=== PATIENT | female | born 1965 | race Caucasian/White ===

== ENCOUNTER 2022-09-24 16:46 | Outpatient (CLI) | payer OTHER, BC, SELFPAY ==
--- OUTSIDE RECORDS SUMMARY | 2022-10-26 11:43 | XMS_ITS | Encounter Summary ---
:1965 Author Organization [facility] Address [address] [place] [address] Care Team Providers Name Role Phone Siobhan Klein MD Primary Care Provider Reason for Visit Reason Comments Skin Check Encounter Details Date Type Department Care Team Description 08/14/2016 Office Visit [facility] [address] Rosa Elena Cota MD Seborrheic keratosis (Primary Dx); Dermatology [address] Scar conditions and fibrosis of skin; [address] [place], [place] Benign neoplasm of skin, unspecified location; [address] [address] Sun-damaged skin; [place], [place] [phone] Screeni for malignant neoplasm of skin [id number] (Work) [phone] Social History Tobacco Use Types Packs/Day Years Used Date Smoking Tobacco: Never Sex Assigned at Date Recorded Not on file documented as of this encounter Patient Instructions Patient InstructionsRosa Elena Cota MD - 08/14/2016 5:52 PM CDT Please return in one year for a routine screening. Continue to monitor your skin for new or changing skin lesions. Always protect your skin from the sun with clothing and sunscreen SPF 30-50. Skin cancer can arise slowly or quickly. If you ever have a skin lesion that is concerning, please schedule an appointment to have it checked by calling [phone]. documented in this encounter Progress Notes Rosa Elena Cota MD - 08/14/2016 3:49 PM CDT DERMATOLOGY NEW PATIENT VISIT NOTE: Chief Complaint: Skin Lesions-Upper Back, Left Collarbone; Skin Cancer Screening Examination. Derm History: Actinic keratosis Dysplastic nevus, left breast Melasma HPI: Bev Castillo is a 48 y.o. female who presents today for a routine yearly skin cancer screening. She has two lesions of concern today: 1. She has noticed an itching lesion on her left upper back over the past few months. She believes that a portion of the lesion has fallen off. 2. She noticed a firm lesion on her left collarbone 6 months ago which has not been changing in size. It is not bothersome. She has a history of actinic keratoses and a dysplastic nevus on her left breast. FHx: The patient has no family history of skin cancer or melanoma. ROS: The patient denies any other recent concerning skin lesions or rashes. Medications: Reviewed in Epic. Allergies: Reviewed in Epic. PMHx: Pertinent items are in HPI. Physical Examination: GENERAL: The patient is alert & oriented x3 in NAD, pleasant and cooperative, displaying a Cantu Skin Type 4. CUTANEOUS: A skin examination was performed including the scalp, face, ears, neck, chest, breasts, abdomen, back, buttocks, perianal area, all four extremities, hands, feet. Palpation and visual inspection of the nails was done. Mucous membranes were not examined. Assessment & Plan: 1. Pigmented Seborrheic Keratosis: There is a discrete brown keratotic 4 mm papule on the left upperback. 2. Scar: There is a 3-4 mm ropey firm scar-like papule on the left collarbone. Plan: Reassurance, both appear benign, not worrisome. No need to remove or biopsy. Advised to RTC if either lesion changes. 2. History of Dysplastic Nevi: There are no suspicious lesions for skin cancer or melanoma. There are multiple solar induced lentigines and keratoses in sun exposed skin, benign pigmented seborrheic keratoses, and multiple benign to slightly atypical appearing dark brown papules randomly scattered on the trunk and extremities. Plan: Continue close surveillance. Patient Education: re ALVIN's, need for regular self examination and sun protection with sunscreen use and protective clothing. An appointment should be made if any of the moles change in color, shape, size, thickness, itch, or bleed. The patient was advised to RTC in 1-2 years. Rosa Elena Cota MD (Primary Provider) documented in this encounter Plan of Treatment Upcoming Encounters Date Type Specialty Care Team Description 06/19/2023 Appointment Dermatology Rosa Elena Cota M D [address] [place] [phone] (Wo rk) documented as of this encounter Visit Diagnoses Diagnosis Seborrheic keratosis - Primary Other seborrheic keratosis Scar conditions and fibrosis of skin Scar condition and fibrosis of skin Benign neoplasm of skin, unspecified loc ation Sun-damaged skin Other chronic dermatitis due to solar ra diation Screening for malignant neoplasm of skin Screening for malignant neoplasm of the skin documented in this encounter Care Teams Shoe Stitcher Odd Relationship Specialty Start Date End Date Siobhan Klein MD PCP - General 07/19/16 [address] [place] [address] documented as of this encounter
--- OUTSIDE RECORDS SUMMARY | 2022-10-26 11:43 | XMS_ITS | Encounter Summary ---
:1965 Author Organization [facility] Address [address] [place] [address] Care Team Providers Name Role Phone Siobhan Klein MD Primary Care Provider Reason for Referral (Routine) - New Request Specialty Diagnoses / Procedures Referred By Contact Refer red To Contact Diagnoses Multiple actinic keratoses Rosa Elena Cota MD Procedures MO DESTRUC BENIGN/PREMAL,2-14 LESIONS [address] [place] [address] Referral ID Status Reason Start Date Expiration Date Visits V isits Requested Authorized [id number] New Request 06/19/2022 09/18/2023 1 1 Reason for Visit Reason Comments Skin Check SKIN LESION 1)r preauricular area- onset : months. Red pimple like lesion. Feels like something is in it2) Rough spot on left nasal sidewall. Onset: present since last visit. Was prescr ibed Efudex. The area is still a little rough Encounter Details Date Type Department Care Team Description 06/19/2022 Office Visit [facility] & Rosa Elena Cota M D Benign neoplasm of skin, unspecified loc ation (Primary Dx); Specialty Center - [address] Multiple actinic keratoses; Dermatology [place], [place] Sun-damaged skin; [address] [facility] N [address] Family history of malignant melanoma; [place], [place] [address] Screening for malignant neop lasm of skin Social History Tobacco Use Types Packs/Day Years Used Date Smoking Tobacco: Never Smokeless Tobacco: Never Sex Assigned at Date Recorded Not on file documented as of this encounter Progress Notes Rosa Elena Cota MD - 06/19/2022 8:15 AM CDT DERMATOLOGY NEW PATIENT VISIT NOTE: Chief Complaint: Skin Cancer Screening Examination. Derm History: Actinic keratosis Efudex cream-nose 2018, cheeks and lips 2020 Dysplastic nevus, left breast Family history of melanoma-mother Melasma HPI: Bev Castillo is a 56 y.o. female who presents today for a routine skin cancer screening. She was lastscreened by me on 08/03/20. She has the following concerns today: -lesion right cheek present months, pimple-like -lesion left nose, rough present months She has a history of actinic keratoses and a dysplastic nevus on her left breast. FHx: Her mother was diagnosed with melanoma this year. ROS: The patient denies any other recent concerning skin lesions or rashes. Medications: Reviewed in Epic. Allergies: Reviewed in Epic. PMHx: Pertinent items are in HPI. Physical Examination: GENERAL: The patient is tanned, alert & oriented x3 in NAD, pleasant and cooperative, displayinga Cantu Skin Type 4. CUTANEOUS: A skin examination was performed including the scalp, face, ears, neck, chest, breasts, abdomen, back, buttocks, perianal area, all four extremities, hands, feet. Assessment & Plan: 1. Multiple actinic keratoses: There are ill defined scaling to slightly hyperkeratotic papules on the right lateral cheek, left sidewall nose, left cheek bone. The patient understands the precancerous nature. The risks and benefits of the freezing procedure including infection, scarring, and inflammation with blistering were explained to the patient. Liquid nitrogen. Canister application x 3. Lesions treated -3 The patient tolerated the procedure well and wound care instructions were provided to apply Aquaphoror Vaseline twice per day. 2. History of dysplastic nevus: There is no recurrence of the dysplastic nevus on the left breast. 3. Screening for skin cancer: There are no suspicious lesions for skin cancer on examination today. Sun damage: There is solar skin damage with multiple brown lentigines and early sun induced keratoses to the exposed areas of the face, neck, arms, and legs. Seborrheic keratoses: There are multiple discrete mendez to brown keratotic papules on the trunk and extremities. Ott angiomas: There are multiple bright red vascular papules on the trunk. Multiple benign nevi: There are multiple benign appearing regular solid brown papules randomly scattered on the trunk and extremities. None appear to be melanoma. Continue self and routine surveillance. Patient education: re ABCDE's, need for regular self examination and sun protection with OTC SPF 50+sunscreen use and protective clothing. An appointment should be made if any of the moles change in color, shape, size, thickness, itch, or bleed. The patient was advised to RTC in 1 year. Rosa Elena Cota MD (Primary Provider) documented in this encounter Plan of Treatment Upcoming Encounters Date Type Specialty Care Team Description 06/19/2023 Appointment Dermatology Rosa Elena Cota M D [address] [place] [phone] (Wo rk) documented as of this encounter Visit Diagnoses Diagnosis Benign neoplasm of skin, unspecified loc ation - Primary Multiple actinic keratoses Actinic keratosis Sun-damaged skin Other chronic dermatitis due to solar ra diation Family history of malignant melanoma Family history of other specified malign ant neoplasm Screening for malignant neoplasm of skin Screening for malignant neoplasm of the skin documented in this encounter Care Teams Home Health Assistant Relationship Specialty Start Date End Date Siobhan Klein MD PCP - General 07/19/16 [address] [place] [address] documented as of this encounter
--- OUTSIDE RECORDS SUMMARY | 2022-10-26 11:43 | XMS_ITS | Encounter Summary ---
:1965 Author Organization [facility] Address [address] [place] [address] Care Team Providers Name Role Phone Siobhan Klein MD Primary Care Provider Reason for Visit Reason Comments Skin Check Encounter Details Date Type Department Care Team Description 08/03/2020 Office Visit [facility] Rosa Elena Cota M D Actinic cheilitis (Primary Dx); Specialty Center - [address] [place] [address] VD Actinic keratosis; Dermatology [place], [place] Seborrheic keratosis; [address] [facility] [address] [address] Ott angioma; [place], [place] [address] Multiple benign nevi; Sun-damaged skin; [phone] History of dysp lastic nevus; (Fax) Screening for m alignant neoplasm of skin Social History Tobacco Use Types Packs/Day Years Used Date Smoking Tobacco: Never Smokeless Tobacco: Never Sex Assigned at Date Recorded Not on file documented as of this encounter Progress Notes Rosa Elena Cota MD - 08/03/2020 10:15 AM CDT DERMATOLOGY NEW PATIENT VISIT NOTE: Chief Complaint: Skin Cancer Screening Examination. Derm History: Actinic keratosis Efudex cream-nose 2017, cheeks 2019 pending Dysplastic nevus, left breast Melasma HPI: Bev Castillo is a 54 y.o. female who presents today for a routine skin cancer screening. She was lastscreened by me on 04/03/18. She has the following concerns today: -lesion left cheek, rough present 6 months -lesion right shoulder, picks at it -lesion chest -lesion right lower leg She has a history of actinic keratoses and a dysplastic nevus on her left breast. FHx: She has no family history of skin cancer [...] extremities, hands, feet. Assessment & Plan: 1. Actinic cheilitis There is whiteness of the lower lip with fragility. Patient Education regarding sun damage of the low lower lip Recommend trying Efudex cream twice daily for 5-7 days, followed by application of Aquaphor ointment, sun protection 2. Actinic keratosis: There is an ill defined scaling area on the left cheek. The patient understands the lesions are precancerous. Treatment options explained- liquid nitrogen vs Efudex cream. She would like to try Efudex cream. The risks and expectations of the treatment were discussed in detail with the patient. Begin Efudex cream as directed. Sig: Apply the 5-Fluorouracil cream thinly to the cheeks twice per day for one week, then allow the treated areas to fully heal using Aquaphor ointment for 2-4 weeks twice per day. Restart the cream twice per day for two more weeks, then allow to heal again using Aquaphor ointmenttwce per day. Instructional AVS was reviewed and provided. She has a tube at home. 3. Macular seborrheic keratosis There is a 5 mm brown discrete keratotic papule on the right lower leg. There is a 3 mm brown discrete keratotic papule on the central chest. Reassurance, appear to be benign keratoses 4. Ott angioma There is a 2 mm ott angioma on the right shoulder. Reassurance, appears benign 5. History of dysplastic nevus: There is no recurrence of the dysplastic nevus on the left breast. 6. Skin cancer screening: There are no suspicious lesions for skin cancer or melanoma. Sun damage: There is solar skin damage with multiple brown lentigines and early sun induced keratoses to the exposed areas of the face, neck, arms, and legs. Seborrheic keratoses: There are multiple discrete mendez to brown keratotic papules on the trunk and extremities. Multiple benign nevi: There are multiple benign to slightly atypical appearing regular solid dark brown papules randomly scattered on the [...] Appointment Dermatology Rosa Elena Cota M D [address] [place] [phone] (Wo rk) documented as of this encounter Visit Diagnoses Diagnosis Actinic cheilitis - Primary Acute dermatitis due to solar radiation Actinic keratosis Seborrheic keratosis Other seborrheic keratosis Ott angioma Nevus, non-neoplastic Multiple benign nevi Benign neoplasm of skin, site unspecifie d Sun-damaged skin Other chronic dermatitis due to solar ra diation History of dysplastic nevus Personal history of diseases of skin and subcutaneous tissue Screening for malignant neoplasm of skin Screening for malignant neoplasm of the skin documented in this encounter Care Teams Hospitality Aide Relationship Specialty Start Date End Date Siobhan Klein MD PCP - General 07/19/16 [address] [place] [address] documented as of this encounter
--- OUTSIDE RECORDS SUMMARY | 2022-10-26 11:43 | XMS_ITS | Clinical Summary ---
:1965 Author Organization [facility] Address [address], [place] [address] Care Team Providers Name Role Phone Siobhan Klein MD Primary Care Provider Source Comments You are receiving this document as you are listed as the primary care provider,follow-up provider, or the patient has been referred to you for consultation.This is in compliance with the Medicare and Medicaid EHR Incentive Program,which states Providers who transition their patient to another setting of careor provider of care or refers their patient to another provider of care shouldprovide summarycare record for each transition of care or referral. [facility] Allergies No known active allergies Medications Medication Sig Dispensed Refills Start Date End Date Status aspirin EC 81 MG Take 81 mg by 0 Active enteric coated tablet mouth daily. fluorouracil (EFUDEX) 5 Apply to the nose 45 g 0 04/03/20 18 Active % creamIndications: twice per day for Actinic keratosis 7 days, then allow to heal. Restart the cream BID for 2 weeks, then allow to heal. Additional Information Patient not taking. Reported on 08/03/2020 Active Problems No known active problems Social History Tobacco Use Types Packs/Day Years Used Date Smoking Tobacco: Never Smokeless Tobacco: Never Sex Assigned at Date Recorded Not on file Plan of Treatment Upcoming Encounters Date Type Specialty Care Team Description 06/19/2023 Appointment Dermatology Rosa Elena Cota M D [address] [place] [phone] (Wo rk) Health Maintenance Due Date Last Done Comments Cervical Cancer Screening 1965 Due Colon Cancer Screening Plan 1965 Due Hep C Screening (Preventive 1965 Services) HepB (1) 1965 COVID-19 Vaccine (#1) 02/01/1965 HIV Screening (Preventive 1980 Services) Adult Preventive Visit 1982 Cholesterol 2009 Zoster/Shingles (1 of 2) 2014 DTaP/Tdap/Td (2 - Tdap) 12/17/2021 12/17/2011, 01/29/2003 Mammogram 06/29/2022 06/29/2021, 05/19/2020, 02/13/2019, Additional history exists Influenza (#1) 2022 HepA Aged Out 08/27/2003, 08/27/2003, No longe r eligible 01/29/2003, Additional based on patient's age history exists to complete this topic Hib Aged Out No longer eligib le based on patient 's age to complete this topic IPV (Polio) Aged Out No longer eligib le based on patient 's age to complete this topic MCV4 Aged Out No longer eligib le based on patient 's age to complete this topic Pneumococcal Aged Out No longer eligib le based on patient 's age to complete this topic Insurance Payer Benefit Plan / Subscriber ID Effective Dates Phone Addre ss Type Group BCBS BCBS OUT OF [id number] 2016-Present [address] [address] [place] [address] Bev Castillo Personal/Family Self 1965 [address] (Home) [place] [address] Bev Castillo Personal/Family Self 1965 [address] (Home) [place] [address] Care Teams Edi Analyst Relationship Specialty Start Date End Date Siobhan Klein MD PCP - General 07/19/16 [address] [place] [address] (work)
--- OUTSIDE RECORDS SUMMARY | 2022-10-26 11:43 | XMS_ITS | Encounter Summary ---
:1965 Author Organization [facility] Address [address] [place] [address] Care Team Providers Name Role Phone Siobhan Klein MD Primary Care Provider Reason for Visit Reason Comments PEELING, SKIN Encounter Details Date Type Department Care Team Description 03/18/2021 Nurse Triage Careline Unknown, Physician PEELING, SKIN [address] [place], [place] [address] [place], [place] [phone] (Wo rk) Social History Tobacco Use Types Packs/Day Years Used Date Smoking Tobacco: Never Smokeless Tobacco: Never Sex Assigned at Date Recorded Not on file documented as of this encounter Nursing Notes Rica Sousa RN - 03/18/2021 2:04 PM CDT Reason for Disposition ??? [1] Caller has URGENT medication question about med that PCP or specialist prescribed AND [2] triager unable to answer question Protocols used: MEDICATION QUESTION [id number] Rica Sousa RN - 03/18/2021 1:43 PM CDT Verified patient identity: Yes Situation/Background (brief explanation of current symptoms/situation): Patient was advised to use efudex for 5-7 days for a precancerous area on her lower lip. She used it through last Saturday, which was seven days. Now she sees some blistering and has some pain. Patient states that the precancerous area was on lower lip. It looks creamy, slightly swollen. No pus, fevers, or red streaking. No problems breathing or swallowing. Last night she developed painin the left ear, but at the moment she does not have the pain. She took two Ibuprofen last night forboth the ear and lip pain. There is some bleeding. Patient developed symptoms on late . She sees cracking and the area is tight. Cool washcloth is helpful. Is that ok? Reviewed with patient pertinent medical history (as it related to the call): Yes PLAN: Paged Marcela Blankenship MD (ultrasonic tester for [facility] dermatology) at 1:54 PM She called back right away. Dr. Blankenship stated that this is a fairly significant reaction but not unheard of. She would like to know if the patient has a history of any HSV-1 on the lower face. If so she would like to prescribe some Valtrex. Otherwise, ok to continue with care as she is doing, including gentle washing only, cool packs, Ibuprofen, Vaseline, OTC hydrocortisone cream 1%. Call back or be seen in UC with signs of infection or worsening symptoms. This typewriter mechanic called back to the patient with Dr. Blankenship's advice. The patient denied any history ofcold sores. She voiced understanding and agreement with the plan of care. I offered continued CareLine assistance at any time 10/06. I offered to route a note to the dermatology department for follow upon Saturday, but she stated she would prefer to follow up with them if needed on Saturday and will call herself in that case. Rica Sousa RN 03/18/2021, 2:03 PM Hillary Tomas - 03/18/2021 10:21 AM CDT Verified patient identity using three identifiers: Yes Caller's relationship to patient: Self At which care system or clinic is the patient normally seen? Other (Clinic Name) Symptoms Describe the reason for call/symptoms (include location and duration if applicable): pt states she is currently on a medication (cream) states she used it on her lips for 7 days states her lips are nowpeeling,cracking, Plan:The current callback time to speak with a nurse is 2.0 hr. . If your symptoms change or worsen,or if you have not received a call back in the stated timeframe, please call us back documented in this encounter Plan of Treatment Upcoming Encounters Date Type Specialty Care Team Description 06/19/2023 Appointment Dermatology Rosa Elena Cota M D [address] [place], [place] [phone] (Wo rk) documented as of this encounter Visit Diagnoses Not on filedocumented in this encounter Care Teams Sign Language Instructor Relationship Specialty Start Date End Date Siobhan Klein MD PCP - General 07/19/16 [address] [place] [address] documented as of this encounter
--- OUTSIDE RECORDS SUMMARY | 2022-10-26 11:43 | XMS_ITS | Encounter Summary ---
:1965 Author Organization [facility] Address [address] [place] [address] Care Team Providers Name Role Phone Siobhan Klein MD Primary Care Provider Reason for Visit Reason Comments Medication Questions Encounter Details Date Type Department Care Team Description 12/29/2020 [address] [place] [facility] & Rosa Elena Cota M D Medication Questions Specialty Center - [address] [place] [address] Dermatology [place] [address] [phone] Social History Tobacco Use Types Packs/Day Years Used Date Smoking Tobacco: Never Smokeless Tobacco: Never Sex Assigned at Date Recorded Not on file documented as of this encounter Nursing Notes Rosa Elena Cota MD - 12/29/2020 4:04 PM CST I left Bev a voice message indicating to stay the course as directed despite not having much of a reaction. She can go ahead and use it on the lip as instructed and time. Henny Eugene RN - 12/29/2020 12:44 PM CST LAST VISIT: 07/2020 NEXT VISIT: none Date(s) of failed/ cancelled appt: na NAME OF CALLER: Bev NAME OF CLINICIAN: Dr Cota SITUATION: Pt has been using Efudex on cheeks for 6 days and nothing is happening. BACKGROUND: Hx of AKs, DN. Treated nose with Efudex in 2018. Was advised to start Efudex to cheeks and lips. ASSESSMENT: Pt has completed 6 days of efudex to malar cheek. She notes that her tube is slightly (10/2020) and is not sure if that is to blame for lack or reaction. She has not yet started treatment on lip. Denies any redness/ blotches, discomfort. RECOMMENDATION GIVEN: Advised to keep applying until she hears back from Dr Cota. Per original instructions she was to take a break after one week of treatment. Since she has had no reaction I advised she does not need to observe a break. Will ask for direction from Dr Cota ACTION NEEDED FROM PROVIDER: Please advise: does she need a new tube of Efudex or is there another reason for lack of response? She does not want to treat lips yet if you think she needs new Rx. PHARMACY UPDATED IN MEDS AND ORDERS:no CALL PATIENT BACK: yes CALL BACK PHONE NUMBER: [phone] (home) MESSAGE OK: yes CE SURGEON documented in this encounter Plan of Treatment Upcoming Encounters Date Type Specialty Care Team Description 06/19/2023 Appointment Dermatology Rosa Elena Cota M D [address] [place] [phone] (Wo rk) documented as of this encounter Visit Diagnoses Not on filedocumented in this encounter Care Teams Rotary Surface Grinder Relationship Specialty Start Date End Date Siobhan Klein MD PCP - General 07/19/16 [address] [place] [address] documented as of this encounter
--- OUTSIDE RECORDS SUMMARY | 2022-10-26 11:43 | XMS_ITS | Encounter Summary ---
:1965 Author Organization [facility] Address [address] [place] [id number] Care Team Providers Name Role Phone Siobhan Klein MD Primary Care Provider Reason for Visit Reason Comments Skin Check Encounter Details Date Type Department Care Team Description 04/03/2018 Office Visit Gabriela Mora & Rosa Elena Cota M D Actinic keratosis (Primary Dx); [facility] - [address] [place] [address] VD Benign neoplasm of skin, unspecified loc ation; Dermatology [place], [place] Sun-damaged skin; [address] [facility] [address] [address] History of dysplastic nevus; [place], [place] [address] Screening for malignant neop lasm of skin Social History Tobacco Use Types Packs/Day Years Used Date Smoking Tobacco: Never Smokeless Tobacco: Never Sex Assigned at Date Recorded Not on file documented as of this encounter Patient Instructions Patient InstructionsRosa Elena Cota MD - 04/03/2018 2:00 PM CDT EFUDEX (5-FLUOROURACIL) CREAM INSTRUCTIONS The cream is intended to reduce your risk of future skin cancer by destroying precancerous lesions. It is a chemotherapeutic cream that will cause inflammation and swelling after it is applied, as wellas cause a field effect to the surrounding skin. It can be a harsh treatment but most patients feel it is beneficial care home. It is expected that you will become red, scaly, and occasionally develop small scabs during treatment. Please follow the instructions as explained by your cobol engineer as follows: Apply the 5-FU cream thinly to the nose twice per day for 1 week, then allow the treated areas to fully heal for 2 to 4 weeks using Vaseline or Aquaphor ointment twice per day. Restart the cream twice per day for 2 more weeks, then allow to heal again using Vaseline or Aquaphor ointment twice per day.Wash hands after application. For evening application, apply at least 1 hour prior to bedtime to avoid smearing medication on bedclothes. Always apply the cream in a thin fashion and avoid the areas around the eyes and the creases alongside your nose! If at any time the cream is causing severe discomfort, a short break up to one to two weeks can be taken with the idea it will be restarted. It is best to complete a total time of three weeks using it twice per day with breaks of time if desired. You may use Vaseline or Aquaphor ointment at anytime during and after the treatment. Avoid sun and wind exposure during treatment as this can increase your discomfort. Sunscreens with UVA and UVB protection and SPF 30 or greater should be used on a regular basis (it is safe and recommended to apply sunscreen on top of this medication). Allow at least two months for complete healing. Your skin will be sensitive for a few weeks and it is very important not to be in the sun without protection. Call the doctor at anytime during the course of treatment at [phone] if you have concerns or questions or if you develop fever, chills, pus drainage, or other signs of infection. See your doctor again in 3 months after completion of the treatment. Please return in 1-2 years for a routine screening. Continue to monitor your skin for new or changing skin lesions. Always protect your skin from the sun with clothing and sunscreen SPF 30-50. Skin cancer can arise slowly or quickly. If you ever have a skin lesion that is concerning, please schedule an appointment to have it checked by calling [phone]. documented in this encounter Progress Notes Rosa Elena Cota MD - 04/03/2018 2:00 PM CDT DERMATOLOGY NEW PATIENT VISIT NOTE: Chief Complaint: Nose Lesion; Skin Cancer Screening Examination. Derm History: Actinic keratosis Dysplastic nevus, left breast Melasma HPI: Bev Castillo is a 48 y.o. female who presents today for a routine skin cancer screening. Bev believes that the rough scaling on her upper nose is increasing-we have been watching this overthe past years. She has a history of actinic keratoses [...] were not examined. Assessment & Plan: 1. Actinic keratosis: There is an ill defined 10 mm scaling brownish plaque on the nasal root. The patient understands the lesions are precancerous. Treatment options explained- liquid nitrogen vs Efudex cream. She would like to try Efudex cream. The risks and expectations of the treatment were discussed in detail with the patient. Begin Efudex cream as directed. Sig: Apply the 5-Fluorouracil cream thinly to the nose twice per dayfor one week, then allow the treated areas to fully heal using Aquaphor ointment for 2-4 weeks twiceper day. Restart the cream twice per day for two more weeks, then allow to heal again using Aquaphor ointmenttwce per day. Instructional AVS was reviewed and provided. 2. Skin cancer screening/history of dysplastic nevus: There are no suspicious lesions for skin cancer or melanoma. There is no recurrence of the dysplastic nevus on the left breast. Sun damage: There is solar skin damage [...] melanoma. Continue self and routine surveillance. Patient Education: re ABCDE's, need for regular self examination [...] Appointment Dermatology Rosa Elena Cota M D [address] [place] [phone] (Wo rk) documented as of this encounter Visit Diagnoses Diagnosis Actinic keratosis - Primary Benign neoplasm of skin, unspecified loc ation Sun-damaged skin Other chronic dermatitis due to solar ra diation History of dysplastic nevus Personal history of diseases of skin and subcutaneous tissue Screening for malignant neoplasm of skin Screening for malignant neoplasm of the skin documented in this encounter Care Teams Electric Shaver Mechanic Relationship Specialty Start Date End Date Siobhan Klein MD PCP - General 07/19/16 [address] [place] [address] documented as of this encounter
--- OUTSIDE RECORDS SUMMARY | 2022-10-26 11:44 | XMS_ITS | Encounter Summary ---
:1965 Author Organization [facility] Address [address] [place] [address]. [place] [address] Care Team Providers Name Role Phone Ivory Schneider MD Primary Care Provider [phone] Reason for Visit Reason Comments Insect Bite Encounter Details Date Type Department Care Team Description 07/18/2016 - [facility] [place] Marcella Cabezas Al lergic reaction, 07/19/2016 [facility] initial encounter Dept SKIN REJUVENATION [address] [place], [place] [address] [facility] [id number] [facility] [phone] [place], [place] [id number] (Wo rk) Social History Tobacco Use Types Packs/Day Years Used Date Smoking Tobacco: Never Smokeless Tobacco: Never Alcohol Use Standard Drinks/Week Comments Yes 0 (1 standard drink = 0.6 oz pure alcoho l) Occas. Sex Assigned at Date Recorded Not on file documented as of this encounter Last Filed Vital Signs Vital Sign Reading Time Taken Comments Blood Pressure 108/70 07/19/2016 12:30 AM CDT Pulse 58 07/18/2016 10:49 PM CDT Temperature 36.6 ??C (97.9 ??F) 07/18/2016 10:49 PM CDT Respiratory Rate 18 07/18/2016 10:49 PM CDT Oxygen Saturation 97% 07/19/2016 12:15 AM CDT Inhaled Oxygen Concentration - - Weight 70.3 kg (155 lb) 07/18/2016 10:49 PM CDT Height 188 cm (6' 2) 07/18/2016 10:49 PM CDT Body Mass Index 19.9 07/18/2016 10:49 PM CDT documented in this encounter Discharge Instructions Discharge InstructionsMarcella Cabezas MD - 07/19/2016 12:47 AM CDT Discharge Instructions Allergic Reaction An allergic reaction can result in a rash, itching, swelling, watery eyes, or a runny nose. A serious reaction can cause swelling of your mouth or throat, or wheezing. The most serious allergy is called analphylaxis, and can be life- threatening. Many allergies result in hives, also called urticaria. An allergy happens when the body???s natural defense system (immune system) overreacts to something harmless. The thing that triggers your allergic reaction is called an allergen. The first time you are exposed to your allergen, you may not have any reaction, but the body makes a protein called an antibody. The antibody lets the body recognize and remember the allergen. Every time you are exposed to your allergen you get more antibody and your reaction can be more severe. Call 911 if you have: ??? Swelling of the lips, tongue or throat. ??? Hoarse voice, drooling or trouble breathing. ??? Chest pain or shortness of breath. ??? Fainting or unconsciousness. Return to the Emergency Department if: ??? You develop a fever. ??? You have significant abdominal pain. ??? You vomit more than once. ??? Your rash changes or looks very different. What can I do to help myself? If you know what caused your allergy, don???t touch it, throw any of it away, and tell others not to have it around you. Wear a medical alert bracelet with a name of your allergen on it. ??? If you don???t know what you are allergic to, keep a journal of everything that you are exposed to (foods, soaps, medicines, etc.). Take this with you when you follow up with your primary doctor. This may help determine what is causing the allergic reaction. ??? Take any medicines that are prescribed. ??? Antihistamines can decrease rash or itching. You may use Benadryl?? (diphenhydramine) for rash or itching according to package directions, or use a prescription antihistamine as recommended by yourphysician. ??? For significant allergic reactions, you may have been given an epinephrine (adrenaline) auto injector (EpiPen??). Carry this with you at all times! Use it if you are having any symptoms of anaphylaxis. Do not be afraid to use it. Always call 911 if you use your EpiPen??! It is only meant to buy time until you can get to the Emergency Department! If you were given a prescription for medicine here today, be sure to read all of the information (including the package insert) that comes with your prescription. This will include important information about the medicine, its side effects, and any warnings that you need to know about. The pharmacist who fills the prescription can provide more information and answer questions you may have about the medicine. If you have questions or concerns that the pharmacist cannot address, please call or return to the Emergency Department. Opioid Medication Information Pain medications are among the most commonly prescribed medicines, so we are including this information for all our patients. If you did not receive pain medication or get a prescription for pain medicine, you can ignore it. You may have been given a prescription for an opioid (narcotic) pain medicine and/or have received apain medicine while here in the Emergency Department. These medicines can make you drowsy or impaired. You must not drive, operate dangerous equipment, or engage in any other dangerous activities whiletaking these medications. If you drive while taking these medications, you could be arrested for DUI, or driving under the influence. Do not drink any alcohol while you are taking these medications. Opioid pain medications can cause addiction. If you have a history of chemical dependency of any type, you are at a higher risk of becoming addicted to pain medications. Only take these prescribed medications to treat your pain when all other options have been tried. Take it for as short a time and asfew doses as possible. Store your pain pills in a secure place, as they are frequently stolen and provide a dangerous opportunity for children or visitors in your house to start abusing these powerful medications. We will not replace any lost or stolen medicine. As soon as your pain is better, you should flush all your remaining medication. Many prescription pain medications contain Tylenol?? (acetaminophen), including Vicodin??, Tylenol #3??, Melvin??, Lortab??, and Percocet??. You should not take any extra pills of Tylenol?? if you are using these prescription medications or you can get very sick. Do not ever take more than 3000 mg of acetaminophen in any 24 hour period. All opioids tend to cause constipation. Drink plenty of water and eat foods that have a lot of fiber, such as fruits, vegetables, prune juice, apple juice and high fiber cereal. Take a laxative if you don???t move your bowels at least every other day. Miralax??, Milk of Magnesia, Colace??, or Senna?? can be used to keep you regular. Remember that you can always come back to the Emergency Department if you are not able to see your regular doctor in the amount of time listed above, if you get any new symptoms, or if there is anything that worries you. documented in this encounter Medications at Time of Discharge Medication Sig Dispensed Refills Start Date End Date predniSONE (DELTASONE) Take 2 tablets (40 6 tablet 0 07/1907/22/2016 20 MG tablet mg) by mouth daily for 3 days documented as of this encounter ED Notes Marcella Cabezas MD - 07/18/2016 10:54 PM CDT History Chief Complaint: Insect Bite HPI Bev Castillo is a 50 year old female who presents to the emergency department today for evaluation of an insect bite. Bev reports that tonight she was outside staining when she was stung by a wasp under her right eye. She notes that she has an associated headache and trouble swallowing with the insect bite. She states that she is currently in 4/10 pain because of the swelling on her face. She denies experiencing associated shortness of breath or itchiness. She reports that she does not have a history of allergic reactions. She notes that she did not take Benadryl or any other medications. Allergies: NKDA Medications: No current outpatient prescriptions on file. Past Medical History: Post concussive syndrome Past Surgical History: Colonoscopy Family History: History reviewed. No pertinent family history. Social History: Marital Status: [2] Tobacco: Negative Alcohol: Positive Review of Systems HENT: Positive for trouble swallowing. Eyes: Negative for itching. Respiratory: Negative for shortness of breath. Skin: Positive for right-facial swelling. Allergic/Immunologic: Positive for insect bite. Neurological: Positive for headaches. All other systems reviewed and are negative. Physical Exam First Vitals: BP: 131/87 mmHg Pulse: 58 Temp: 97.9 ??F (36.6 ??C) Resp: 18 Height: 188 cm (6' 2) Weight: 70.308 kg (155 lb) SpO2: 100 % Physical Exam Physical Exam Constitutional: The patient is oriented to person, place, and time. Alert and cooperative. HENT: Right Ear: External ear normal. Left Ear: External ear normal. Nose: Nose normal. Mouth/Throat: Uvula is midline, oropharynx is clear and moist and mucous membranes are normal. No posterior oropharyngeal edema or erythema. Eyes: Conjunctivae, EOM and lids are normal. Pupils are equal, round, and reactive to light. Neck: Trachea normal. Normal range of motion. Neck supple. Cardiovascular: Normal rate, regular rhythm, normal heart sounds, and intact distal pulses. Pulmonary/Chest: Effort normal and breath sounds equal bilaterally. No crackles or wheezing. Abdominal: Soft. Bowel sounds are normal. No tenderness. No rebound and no guarding. Musculoskeletal: Normal range of motion. No extremity tenderness or edema. No CVA tenderness. Lymphadenopathy: No cervical adenopathy. Neurological: Alert and oriented. Normal strength. No cranial nerve deficit or sensory deficit. Skin: Skin is dry. No rash noted. Swelling to the right side of the face. No other rash. No posterior pharyngeal edema. Psychiatric: Normal mood and affect. Emergency Department Course Interventions: 2320: Benadryl, 50 mg, IV 2320: Zantac, 50 mg, IV 2321: Solu-Medrol, 125 mg, IV Emergency Department Course: Nursing notes and vitals reviewed. I performed an exam of the patient as documented above. The above workup was undertaken. 0045: I rechecked the patient, swelling improving. Findings and plan explained to the Patient. Patient discharged home with instructions regarding supportive care, medications, and reasons to return. The importance of close follow-up was reviewed. The patient was prescribed Deltasone. Impression & Plan Medical Decision Making: Bev Castillo is a 50 year old female who sustained a wasp sting to the right side of her face. She has had increasing swelling over the evening and noticed some difficulty with tightness with swallowing. On examination, she has no swelling in the posterior pharynx. She was given Benadryl, Solu-Medrol and Ranitidine with improvement of symptoms. She did not have any difficulty breathing or swallowing after treatment and swelling was improving. We will discharge her with Benadryl every 4-6 hours along with Prednisone. She can ice the face. Return if increasing rash, swelling or shortness of breath. Diagnosis: ICD-10-CM 1. Allergic reaction, initial encounter T78.40XA Disposition: Discharge to home with primary care follow up. Discharge Medications: predniSONE (DELTASONE) 20 MG tablet Take 2 tablets (40 mg) by mouth daily for 3 days, Disp-6 tablet,R-0, Local Print Shanta Lynch am serving as a scribe on 07/18/2016 at 10:58 PM to personally document services performed by Marcella Cabezas MD, based on my observations and the provider's statements to me. [facility] EMERGENCY DEPARTMENT Marcella Cabezas MD 07/19/16 0222 Marjorie Sawant RN - 07/18/2016 10:50 PM CDT ABCs intact. Pt was stung by an insect on R side of face between 2160-1590 today. Pt thinks it was awasp, but is unsure. Pt c/o increased swelling R side of face, headache. Pt states it is getting harder to swallow. Pt's home meds: see epic documented in this encounter Plan of Treatment Not on filedocumented as of this encounter Visit Diagnoses Diagnosis Allergic reaction, initial encounter documented in this encounter Administered Medications Inactive Administered Medications - up to 3 most recent administrations Medication Order MAR Action Action Date Dose Rate Site diphenhydrAMINE (BENADRYL) Given 07/18/2016 11:20 PM CDT 50 mg injection 50 mg 50 mg, Intravenous, ONCE, On Sat07/18/16 at 2306, For 1 dose methylPREDNISolone sodium succinate Given 07/18/2016 11:21 PM CD T 125 mg (solu-MEDROL) injection 125 mg 125 mg, Intravenous, ONCE, On Sat07/18/16 at 2306, For 1 dose, Doses greater than 125 mg need to be in at least 50 mL IVPB ranitidine (ZANTAC) injection 50 mg Given 07/18/2016 11:20 PM CDT 50 mg 50 mg, Intravenous, ONCE, On Sat07/18/16 at 2306, For 1 dose documented in this encounter Active and Recently Administered Medications Times are shown in CDT. Scheduled Medication Order 07/17/2016 07/18/2016 07/19/2016 diphenhydrAMINE (BENADRYL) injection 50 mg (COMPLETED) 2319 (Given - Provider: José Miguel Gonzales RN) 50 mg, Intravenous, ONCE, Sat07/18/16 at 2306, For 1 dose methylPREDNISolone sodium succinate (solu-MEDROL) injection 125 mg (COMPLETED) 2320 (Given - Provider: José Miguel Gonzales RN) 125 mg, Intravenous, ONCE, Sat07/18/16 a t 2306, For 1 dose, Doses greater than 125 mg need to be in at least 50 mL IVPB ranitidine (ZANTAC) injection 50 mg (COMPLETED) 2319 (Given - Provider: José Miguel Gonzales RN) 50 mg, Intravenous, ONCE, Sat07/18/16 at 2306, For 1 dose documented in this encounter Care Teams Event Marketing Representative Relationship Specialty Start Date End Date Ivory Schneider MD PCP - General director of student life 04/21/14 [facility] CEMENT CUTTER CONSULT [address] [place] [address] documented as of this encounter
--- OUTSIDE RECORDS SUMMARY | 2022-10-26 11:44 | XMS_ITS | Encounter Summary ---
:1965 Author Organization [facility] Address [address] [place] [address] Care Team Providers Name Role Phone Ivory Schneider MD Primary Care Provider [phone] Reason for Referral Diagnostic Imaging Mammo (Routine) - Closed Specialty Diagnoses / Procedures Referred By Contact Refer red To Contact Diagnoses Screening mammogram, encounter for ConsultantsIsmael Procedures MA Screen Bilateral w/Justin [employer] Artillery Cannoneer [address] [place] [address] Referral ID Status Reason Start Date Expiration Date Visits Requ ested Visits Authorized [id number] Closed 06/26/2021 06/26/2022 1 1 Reason for Visit Diagnostic Imaging Mammo (Routine) - Closed Specialty Diagnoses / Procedures Referred By Contact Refer red To Contact Diagnoses Screening mammogram, encounter for ConsultantsIsmael Procedures MA Screen Bilateral w/Justin [employer] Cannoneer [address] [place] [address] Referral ID Status Reason Start Date Expiration Date Visits Requ ested Visits Authorized [id number] Closed 06/26/2021 06/26/2022 1 1 Encounter Details Date Type Department Care Team Description 06/29/2021 [facility] Non-Fv Credentialed Pro vider, Radiology Screening Encounter [facility] Fredo Gonzalez MD [facility] [address] [place], [place] [id number] mammogram, Center encounter for [facility], [address] [place] [address] Social History Tobacco Use Types Packs/Day Years Used Date Smoking Tobacco: Never Smokeless Tobacco: Never Alcohol Use Standard Drinks/Week Comments Yes 0 (1 standard drink = 0.6 oz pure alcoho l) Occas. Sex Assigned at Date Recorded Not on file COVID-19 Exposure Response Date Recorded In the last month, have you been in contact with No / Unsure 06/29/2021 1:49 PM CDT someone who was confirmed or suspected to have Coronavirus / COVID-19? documented as of this encounter Medications at Time of Discharge Medication Sig Dispensed Refills Start Date End Date aspirin 81 MG tablet Take by mouth daily 0 documented as of this encounter Plan of Treatment Not on filedocumented as of this encounter Procedures Procedure Name Priority Date/Time Associated Diagnosis Comme nts MA SCREENING Routine 06/29/2021 2:03 PM Screening mammogram, R esults for this BILATERAL W/ JUSTIN CDT encounter for procedure are in the results section. documented in this encounter Results MA Screen Bilateral w/Justin (06/29/2021 2:03 PM CDT) Anatomical Region Laterality Modality Breast Bilateral Mammography Specimen (Source) Anatomical Location Collection Method / Collectio n Time Received Time / Laterality Volume Narrative 06/29/2021 2:26 PM CDT BILATERAL FULL FIELD DIGITAL SCREENING MAMMOGRAM WITH TOMOSYNTHESIS Performed on: 06/29/21 Compared to: 05/19/2020, 02/13/2019, 10/2018, and 01/02/2017 Technique: ??This study was evaluated wi th the assistance of Computer-Aided Detection. ??Breast Tomosynthesis was us ed in interpretation. Findings: The breasts are extremely dens e, which lowers the sensitivity of mammography. ??There is no radiographic evidence of malignancy. IMPRESSION: ACR BI-RADS Category 1: Nega tive RECOMMENDED FOLLOW-UP: Annual routine sc reening mammogram The results and recommendations of this examination will be communicated to the patient. Radiology Non-Fv Credentialed Provider IMG MAMMOGRAPHY ORDERABLES documented in this encounter Visit Diagnoses Diagnosis Screening mammogram, encounter for documented in this encounter Care Teams Marina Porter Relationship Specialty Start Date End Date Ivory Schneider MD PCP - General metal bonding press operator 04/21/14 [facility] HAIRPIECE STYLIST CONSULT [address] [id number] documented as of this encounter
--- OUTSIDE RECORDS SUMMARY | 2022-10-26 11:44 | XMS_ITS | Encounter Summary ---
:1965 [facility] Address [address] [place] [address] Care Team Providers Name Role Phone Siobhan Klein MD Primary Care Provider Encounter Details Date Type Department Care Team Description 07/26/1994 Office Visit Siobhan Klein MD Unspecified spontaneous [address] [place] [address] complication [phone] (Wo rk) Social History Tobacco Use Types Packs/Day Years Used Date Smoking Tobacco: Never Assessed Sex Assigned at Date Recorded Not on file documented as of this encounter Progress Notes Siobhan Klein MD - 07/26/1994 12:00 AM CDTS: In for f/u of spontaneous AB. Passed tissue over the weekend. She did come in for an HCG on Saturday which was 216. She has pretty much stopped bleeding. Minimal cramping. Feeling okay. Emotionally she is doing alright as well. O: The uterus is small, firm and retroverted. Does not appear tender. No adnexal masses. A: Complete AB. P: Will have her come back in a week to recheck the quantitative HCG. Otherwise call me prn. cc: documented in this encounter Plan of Treatment Upcoming Encounters Date Type Specialty Care Team Description 06/19/2023 Appointment Dermatology Rosa Elena Cota M D [address] [place] [phone] (Wo rk) documented as of this encounter Visit Diagnoses Diagnosis Unspecified spontaneous without mention of complication documented in this encounter Care Teams Rail Technician Relationship Specialty Start Date End Date Siobhan Klein MD PCP - General 10/31/1996 03/10/14 [address] [place] [address] documented as of this encounter
--- OUTSIDE RECORDS SUMMARY | 2022-10-26 11:44 | XMS_ITS | Encounter Summary ---
:1965 Author Organization [facility] Address [address] [place] [address] Care Team Providers Name Role Phone Ivory Schneider MD Primary Care Provider [phone] Reason for Visit (Routine) - Closed Specialty Diagnoses / Procedures Referred By Contact Refer red To Contact Cardiology Diagnoses 03/20-gave directions to [facility] for echo appt Rh Ech o Rscc Procedures ECH COMPLETE BUBBLE [address] [place], [place] [address] Phone: Fax: Referral ID Status Reason Start Date Expiration Date Visits Requ ested Visits Authorized [id number] Closed 03/20/2016 03/20/2017 1 1 Encounter Details Date Type Department Care Team Description 03/21/2016 [facility] Cecille River Cerebrov ascular accident (CVA), unspecified; Encounter [facility] MD Shemar Numbness on right side; [facility] Neck pain [address] [place], [place] [address] [address] [place], [place] [phone] [address] Social History Tobacco Use Types Packs/Day Years Used Date Smoking Tobacco: Never Smokeless Tobacco: Never Alcohol Use Standard Drinks/Week Comments Yes 0 (1 standard drink = 0.6 oz pure alcoho l) Occas. Sex Assigned at Date Recorded Not on file documented as of this encounter Plan of Treatment Not on filedocumented as of this encounter Procedures Procedure Name Priority Date/Time Associated Diagnosis Comme nts ECHO BUBBLE Routine 03/21/2016 8:30 AM Cerebrovascular Result s for this COMPLETE CDT accident (CVA), procedure ar e in unspecified the results Numbness on righ t side section. Neck pain documented in this encounter Results Echo Complete Bubble (03/21/2016 8:30 AM CDT) Anatomical Region Laterality Modality Echocardiography Specimen (Source) Anatomical Collection Method Collection Time Re ceived Time Location / / Volume Laterality 03/21/2016 7:09 AM CDT Narrative 03/21/2016 10:48 AM CDT Interpretation Summary [facility] Echocardiography Laboratory [address] [place] [address] Name: HERMINIA KEYES : 1965 Study Date: 03/21/2016 07:09 AM Age: 50 yrs Gender: Female Patient Location: [facility] Reason For Study: Cerebral infarction, A nesthesia of skin, Ordering Physician: CECILLE RIVER Referring Physician: ANNA BERNSTEIN Performed By: Angelica Batres RDCS BSA: 2.0 m2 Height: 74 in Weight: 155 lb HR: 68 BP: 118/74 mmHg Procedure Complete Bubble Echo Adult. Interpretation Summary The visual ejection fraction is estimate d at 55-60%. The right ventricle is normal in size an d function. A contrast injection (Bubble Study) was performed that was positive late after the injection. Trivial pericardial effusion There is no comparison study available. Left Ventricle The left ventricle is normal in size. Th ere is normal left ventricular wall thickness. The visual ejection fraction is estimated at 55-60%. Normal left ventricular diastolic function. Right Ventricle The right ventricle is normal in size an d function. Atria Normal left atrial size. Right atrial si ze is normal. A contrast injection (Bubble Study) was performed that was po sitive late after the injection. Mitral Valve The mitral valve is normal in structure and function. There is trace mitral regurgitation. Tricuspid Valve The tricuspid valve is normal in structu re and function. There is trace tricuspid regurgitation. Right ventricul ar systolic pressure could not be approximated due to inadequate tricuspid regurgitation. Aortic Valve The aortic valve is trileaflet. There is trace aortic regurgitation. No aortic stenosis is present. Pulmonic Valve The pulmonic valve is not well seen, but is grossly normal. There is no pulmonic valvular regurgitation. Vessels The aortic root is normal size. The infe rior vena cava is not dilated. Pericardium Trivial pericardial effusion. There are no echocardiographic indications of cardiac tamponade. Rhythm The rhythm was normal sinus. MMode/2D Measurements & Calculations IVSd: 0.76 cm LVIDd: 4.4 cm LVIDs: 2.9 cm LVPWd: 0.97 cm IVC diam: 1.8 cm FS: 35.2 % EDV(Teich): 89.6 ml ESV(Teich): 31.6 ml LV mass(C)d: 122.9 grams Ao root diam: 3.4 cm LA dimension: 3.2 cm LA/Ao: 0.94 LA Volume (BP): 49.0 ml LA Volume Index (BP): 25.1 ml/m2 Doppler Measurements & Calculations MV E max arash: 72.9 cm/sec MV A max arash: 49.9 cm/sec MV E/A: 1.5 MV dec slope: 377.9 cm/sec2 MV dec time: 0.19 sec PA acc time: 0.13 sec E/E': 7.4 Peak E' Arash: 9.8 cm/sec Report approved by: Jimmie Chambers 02/2016 10:48 AM Procedure Note Jimmie Cornejo MD - 03/21/2016Formattin g of this note might be different from the original. Interpretation Summary [facility] Echocardiography Laboratory [address] [place] [address] Name: HERMINIA KEYES : 1965 Study Date: 03/21/2016 07:09 AM Age: 50 yrs Gender: Female Patient Location: [facility] Reason For Study: Cerebral infarction, A nesthesia of skin, Ordering Physician: CECILLE RIVER Referring Physician: ANNA BERNSTEIN Performed By: Angelica Batres RDCS BSA: 2.0 m2 Height: 74 in Weight: 155 lb HR: 68 BP: 118/74 mmHg Procedure Complete Bubble Echo Adult. Interpretation Summary The visual ejection fraction is estimate d at 55-60%. The right ventricle is normal in size an d function. A contrast injection (Bubble Study) was performed that was positive late after the injection. Trivial pericardial effusion There is no comparison study available. Left Ventricle The left ventricle is normal in size. Th ere is normal left ventricular wall thickness. The visual ejection fraction is estimated at 55-60%. Normal left ventricular diastolic function. Right Ventricle The right ventricle is normal in size an d function. Atria Normal left atrial size. Right atrial si ze is normal. A contrast injection (Bubble Study) was performed that was po sitive late after the injection. Mitral Valve The mitral valve is normal in structure and function. There is trace mitral regurgitation. Tricuspid Valve The tricuspid valve is normal in structu re and function. There is trace tricuspid regurgitation. Right ventricul ar systolic pressure could not be approximated due to inadequate tricuspid regurgitation. Aortic Valve The aortic valve is trileaflet. There is trace aortic regurgitation. No aortic stenosis is present. Pulmonic Valve The pulmonic valve is not well seen, but is grossly normal. There is no pulmonic valvular regurgitation. Vessels The aortic root is normal size. The infe rior vena cava is not dilated. Pericardium Trivial pericardial effusion. There are no echocardiographic indications of cardiac tamponade. Rhythm The rhythm was normal sinus. MMode/2D Measurements & Calculations IVSd: 0.76 cm LVIDd: 4.4 cm LVIDs: 2.9 cm LVPWd: 0.97 cm IVC diam: 1.8 cm FS: 35.2 % EDV(Teich): 89.6 ml ESV(Teich): 31.6 ml LV mass(C)d: 122.9 grams Ao root diam: 3.4 cm LA dimension: 3.2 cm LA/Ao: 0.94 LA Volume (BP): 49.0 ml LA Volume Index (BP): 25.1 ml/m2 Doppler Measurements & Calculations MV E max arash: 72.9 cm/sec MV A max arash: 49.9 cm/sec MV E/A: 1.5 MV dec slope: 377.9 cm/sec2 MV dec time: 0.19 sec PA acc time: 0.13 sec E/E': 7.4 Peak E' Arash: 9.8 cm/sec Report approved by: Jimmie Chambers 02/2016 10:48 AM Cecille River MD CV ECHO ORDERABLES documented in this encounter Visit Diagnoses Diagnosis Cerebrovascular accident (CVA), unspecif ied Numbness on right side Neck pain Cervicalgia documented in this encounter Administered Medications Inactive Administered Medications - up to 3 most recent administrations Medication Order MAR Action Action Date Dose Rate Site sodium chloride 0.9% (bottle) Given 03/21/2016 8:39 AM CDT 30 mL s irrigation 30 mL Irrigation, ONCE, On Sat03/21/16 at 0845, For 1 dose documented in this encounter Care Teams Machine Setup Operator Relationship Specialty Start Date End Date Ivory Schneider MD PCP - General rn first assist 04/21/14 [facility] REFRIGERATED NATIONAL TRUCK DRIVER CONSULT [address] [facility] [address] [place] [address] documented as of this encounter
--- OUTSIDE RECORDS SUMMARY | 2022-10-26 11:44 | XMS_ITS | Encounter Summary ---
:1965 Author Organization [facility] Address [address] [place] [address] Care Team Providers Name Role Phone Ivory Schneider MD Primary Care Provider [phone] Reason for Visit (Routine) - Closed Specialty Diagnoses / Procedures Referred By Contact Refer red To Contact Radiology / Radiology. Diagnoses prev here, told about [facility] [place] Procedures MA SCREENING DIGITAL BILATERAL [address], [address] [place] [address] Phone: Fax: Referral ID Status Reason Start Date Expiration Date Visits Requ ested Visits Authorized [id number] Closed 01/05/2016 01/04/2017 1 1 Encounter Details Date Type Department Care Team Description 01/06/2016 Hospital Encounter [facility] Roma Schneider for screening [facility] [place] Ivory Renteria MD mammogram [address] [facility] [address] SOCIAL SCIENCE RESEARCH ASSISTANT CONSULT [place], [place] [address] [address] [place] [address] [place] [address] Social History Tobacco Use Types Packs/Day Years [...] Associated Diagnosis Comme nts MA SCREENING Routine 01/06/2016 12:08 PM Visit for screening R esults for this DIGITAL BILATERAL CHIROPRACTIC NEUROLOGIST mammogram procedure are in the results section. documented in this encounter Results MA Screening Digital Bilateral (01/06/2016 12:08 PM CHIROPRACTIC NEUROLOGIST) Anatomical Region Laterality Modality Breast Bilateral Mammography Specimen (Source) Anatomical Location Collection Method / Collectio n Time Received Time / Laterality Volume Impressions 01/06/2016 12:16 PM CHIROPRACTIC NEUROLOGIST IMPRESSION: BI-RADS CATEGORY: 1 - ??NEGATIVE. RECOMMENDED FOLLOW-UP: Annual Mammograph y. SUDEEP CALIXTO MD Narrative 01/06/2016 12:16 PM CHIROPRACTIC NEUROLOGIST MA SCREENING DIGITAL BILATERAL 01/06/2016 12:08 PM HISTORY: ??Screening. ??No new breast co mplaints. COMPARISON: ??11/25/2014,01/19/2010 TECHNIQUE: ??Digital mammography with CA D is performed. BREAST DENSITY: Heterogeneously dense. COMMENTS: No findings of suspicion for m alignancy. Procedure Note Sudeep Calixto MD - 01/06/2016For matting of this note might be different from the original. MA SCREENING DIGITAL BILATERAL 01/06/2016 12:08 PM HISTORY: Screening. No new breast compla ints. COMPARISON: 11/25/2014,01/19/2010 TECHNIQUE: Digital mammography with CAD is performed. BREAST DENSITY: Heterogeneously dense. COMMENTS: No findings of suspicion for m alignancy. IMPRESSION: BI-RADS CATEGORY: 1 - NEGATI VE. RECOMMENDED FOLLOW-UP: Annual Mammograph y. SUDEEP CALIXTO MD Ivory Shukla MD IMG MAMMOGRAPHY ORDERABLES documented in this encounter Visit Diagnoses Diagnosis Visit for screening mammogram Other screening mammogram documented in this encounter Care Teams Straightening Press Operator Relationship Specialty Start Date End Date Ivory Schneider MD PCP - General real estate officer 04/21/14 [facility] WOOD SCRAP HANDLER CONSULT [address] [address] documented as of this encounter
--- OUTSIDE RECORDS SUMMARY | 2022-10-26 11:44 | XMS_ITS | Encounter Summary ---
:1965 Author Organization [facility] Address [address] [place] [address] Care Team Providers Name Role Phone Ivory Schneider MD Primary Care Provider Encounter Details Date Type Department Care Team Description 06/29/2021 Travel Social History Tobacco Use Types Packs/Day Years [...] / COVID-19? documented as of this encounter Plan of Treatment Not on filedocumented as of this encounter Visit Diagnoses Not on filedocumented in this encounter Care Teams Traffic Reporter Relationship Specialty Start Date End Date Ivory Schneider MD PCP - General turf and grounds supervisor 04/21/14 [facility] PAINTER CONSULT [address] [place] [address] documented as of this encounter
--- OUTSIDE RECORDS SUMMARY | 2022-10-26 11:44 | XMS_ITS | Encounter Summary ---
:1965 Author Organization [facility] Address [address] [place] [address] Care Team Providers Name Role Phone Ivory Schneider MD Primary Care Provider [phone] Encounter Details Date Type Department Care Team Description 06/17/2020 Orders Only [facility] Darrick Coronado Screen ing for viral Clinic Bill Willis MD disease Laboratory [address] [facility] [id number] [address] [place] [address] Social History Tobacco Use Types Packs/Day Years Used Date Smoking Tobacco: Never Smokeless Tobacco: Never Alcohol Use Standard Drinks/Week Comments Yes 0 (1 standard drink = 0.6 oz pure alcoho l) Occas. Sex Assigned at Date Recorded Not on file COVID-19 Exposure Response Date Recorded In the last month, have you been in contact with No / Unsure 06/17/2020 12:32 PM CDT someone who was confirmed or suspected to have Coronavirus / COVID-19? documented as of this encounter Plan of Treatment Not on filedocumented as of this encounter Procedures Procedure Name Priority Date/Time Associated Diagnosis Comme nts COVID-19 SPIKE RBD Routine 06/17/2020 12:32 PM Screening for v iral Results for this LUCY & TITER REFLEX CDT disease procedure are in the results section. documented in this encounter Results COVID-19 Virus (Coronavirus) Antibody & Titer Reflex (06/17/2020 12:32 PM CDT) Analysis Performed At Patho logist Time Signature COVID-19 Kapil Negative 06/19/2020 [facility] Lucy 1:31 AM CDT [facility] Comment: No COVID-19 antibodies detected. ??Patie nts within 10 days of symptom onset for COVID-19 may not produce sufficient lev els of detectable antibodies. ?? Immunocompromised COVID-19 patients may take longer to develop antibodies. COVID-19 Kapil RBD Not Applicable 06/19/2020 1: 31 AM CDT [facility] AND Lucy Titer DIAGNOSTIC LABORATOR Y, [facility] Comment: Qualitative screen for total antibodies to COVID-19 (SARS-CoV-2) with semi-quantitative measurement of IgG COV ID-19 antibodies by endpoint titer. ?? COVID-19 antibodies may be elevated due to a past or current infection. Negative results do not rule out COVID-1 9 infection. ??Results from antibody testing should not be used as the sole b asis to diagnose or exclude SARS-CoV-2 infection or to inform infection status . ??COVID-19 PCR test should be ordered if current infection is suspected. ??Fa lse positive results may occur in rare cases due to cross-reacting antibodies. This test was developed and its performa nce characteristics determined by the [facility] ([facility]), which is regulated under CLIA as qualifi ed to perform high-complexity testing. ??This test has not been reviewed by e FDA. Testing performed by [facility], [facility], [address] [place] [address], [address], [place] [address] Specimen Anatomical Collection Method Collection Time Receive d Time (Source) Location / / Volume Laterality Blood specimen 06/17/2020 12:32 0 (specimen) PM CDT 12:33 PM CDT Darrick Coronado MD LAB - BLOOD ORDERABLES Performing Organization Address City/State/ZIP Code Phon e Number [facility] [place] [address] DIAGNOSTIC LABORATORY, [address] [place] [address] [address] documented in this encounter Visit Diagnoses Diagnosis Screening for viral disease Special screening examination for unspec ified viral disease documented in this encounter Care Teams Landman Relationship Specialty Start Date End Date Ivory Schneider MD PCP - General director financial services 04/21/14 [facility] HEEL SHAPER CONSULT [address] [facility] [address] [place] [address] documented as of this encounter
--- OUTSIDE RECORDS SUMMARY | 2022-10-26 11:44 | XMS_ITS | Encounter Summary ---
:1965 Author Organization [facility] Address [address] [place] [address] Care Team Providers Name Role Phone Ivory Schneider MD Primary Care Provider Reason for Referral Diagnostic Imaging Mammo (Routine) - Closed Specialty Diagnoses / Procedures Referred By Contact Refer red To Contact Diagnoses Visit for screening mammogram Ivory Schneider Procedures MA Screen Bilateral w/Bry GONZALES MACHINE LEAD BURNER CON SULT [address] [place] [address] Referral ID Status Reason Start Date Expiration Date Visits Requ ested Visits Authorized [id number] Closed 05/19/2020 05/19/2021 1 1 Reason for Visit Diagnostic Imaging Mammo (Routine) - Closed Specialty Diagnoses / Procedures Referred By Contact Refer red To Contact Diagnoses Visit for screening mammogram Ivory Schneider Procedures MA Screen Bilateral w/Bry GONZALES MACHINE LEAD BURNER CON SULT [address] [place] [address] Referral ID Status Reason Start Date Expiration Date Visits Requ ested Visits Authorized [id number] Closed 05/19/2020 05/19/2021 1 1 Encounter Details Date Type Department Care Team Description 05/19/2020 [facility] Ivory Renteria MD mammogram [address] [facility] [address] SIGNAL WORKER HELPER CONSULT BESSY Khan [address] [place] [address] [place] [address] [place]Y [place] [address] Social History Tobacco Use Types Packs/Day Years Used Date Smoking Tobacco: Never Smokeless Tobacco: Never Alcohol Use Standard Drinks/Week Comments Yes 0 (1 standard drink = 0.6 oz pure alcoho l) Occas. Sex Assigned at Date Recorded Not on file COVID-19 Exposure Response Date Recorded In the last month, have you been in contact with No / Unsure 05/19/2020 10:49 AM CDT someone who was confirmed or suspected [...] Associated Diagnosis Comme nts MA SCREENING Routine 05/19/2020 11:05 AM Visit for screening R esults for this BILATERAL W/ BRY CDT mammogram procedure are in the results section. documented in this encounter Results MA Screen Bilateral w/Bry (05/19/2020 11:05 AM CDT) Anatomical Region Laterality Modality Breast Bilateral Mammography Specimen (Source) Anatomical Location Collection Method / Collectio n Time Received Time / Laterality Volume Impressions 05/19/2020 1:29 PM CDT IMPRESSION: BI-RADS CATEGORY: 1 - ??Negative RECOMMENDED FOLLOW-UP: Annual Mammograph y. Exam results letter mailed to patient. SANFORD LOMBARDI MD Narrative 05/19/2020 1:29 PM CDT SCREENING MAMMOGRAM, BILATERAL, DIGITAL w/CAD AND TOMOSYNTHESIS - 05/19/2020 11:05 AM BREAST SYMPTOMS: No current breast compl aints. COMPARISON: ??02/13/2019, 01/02/2017. BREAST DENSITY: Extremely dense. COMMENTS: No findings of suspicion for m alignancy. Procedure Note Sanford Lombardi MD - 05/19/2020For matting of this note might be different from the original. SCREENING MAMMOGRAM, BILATERAL, DIGITAL w/CAD AND TOMOSYNTHESIS - 05/19/2020 11:05 AM BREAST SYMPTOMS: No current breast compl aints. COMPARISON: 02/13/2019, 01/02/2017. BREAST DENSITY: Extremely dense. COMMENTS: No findings of suspicion for m alignancy. IMPRESSION: BI-RADS CATEGORY: 1 - Negati ve RECOMMENDED FOLLOW-UP: Annual Mammograph y. Exam results letter mailed to patient. SANFORD LOMBARDI MD Ivory Shukla MD IMG MAMMOGRAPHY ORDERABLES documented in this encounter Visit Diagnoses Diagnosis Visit for screening mammogram Other screening mammogram documented in this encounter Care Teams Log Buyer Relationship Specialty Start Date End Date Ivory Schneider MD PCP - General garnett machine operator 04/21/14 [facility] MACHINE LEAD BURNER CONSULT [address] [place] [id number] documented as of this encounter
--- OUTSIDE RECORDS SUMMARY | 2022-10-26 11:44 | XMS_ITS | Encounter Summary ---
:1965 Author Organization [facility] Address [address] [place] [address] Care Team Providers Name Role Phone Ivory Schneider MD Primary Care Provider Reason for Visit Auth/Cert - Closed Specialty Diagnoses / Procedures Referred By Contact Refer red To Contact Gastroenterology Diagnoses SCREENING Endoscopy Procedures COLONOSCOPY [address] [place] [phone] Phone: Referral ID Status Reason Start Date Expiration Date Visits Requ ested Visits Authorized [id number] Closed 1 1 Encounter Details Date Type Department Care Team Description 05/04/2014 Surgery [facility] Latha Kurtz MD COLONOSCOPY End[facility] [address] [place] [address] [place] [id number] [place], [place] [id number] (Wo rk) Surgery Details Date/Time Status Location OR Service Patient Class Case Case Trauma Class Type Case? 05/04/14 7:30 Posted GI GI 03 [facility] AM Panel 1 Procedure [facility] Anes Op Region Wound Class Commen ts COLONOSCOPY N/A Conscious Sedation Rectum II-Clean Contami nated COLONOSCOPY Surgeon Surgeon Role Service Panel Latha Luciano MD Primary [facility] 1 documented in this encounter Social History Tobacco Use Types Packs/Day Years Used Date Smoking Tobacco: Never Alcohol Use Standard Drinks/Week Comments Yes 0 (1 standard drink = 0.6 oz pure alcoho l) Occas. Sex Assigned at Date Recorded Not on file documented as of this encounter Last Filed Vital Signs Vital Sign Reading Time Taken Comments Blood Pressure 98/64 05/04/2014 9:10 AM CDT Pulse - - Temperature - - Respiratory Rate 26 05/04/2014 9:10 AM CDT Oxygen Saturation 100% 05/04/2014 9:10 AM CDT Inhaled Oxygen Concentration - - Weight 68 kg (150 lb) 05/04/2014 7:09 AM CDT Height 188 cm (6' 2.02) 05/04/2014 7:09 AM CDT Body Mass Index 19.25 05/04/2014 7:09 AM CDT documented in this encounter Medications at Time of Discharge Medication Sig Dispensed Refills Start Date End Date CHLOROQUINE PHOSPHATE Take one tablet by 6 0 200704/04/2015 500 MG OR mouth weekly on the TABSIndications: Other same day each week. specified counseling Start 1 week prior to entering malaria area and continue for 4 weeks after leaving area. CIPRO 500 MG OR Take one tablet twice 6 0 8 04/04/2015 TABSIndications: Other a day for up to three specified counseling days to treat traveler's diarrhea. NAPROXEN None Entered 0 04/04/2015 TRANSDERM-SCOP 1.5 MG TD 1 PATCH EVERY 3 DAYS; 10 3 10/16/2005 04/04/2015 [id number]: DENIED, PT NEEDS APPT Encounter for long-term (current) use of other medications VIVOTIF MONICA VACCINE Take one capsule by 4 0 03/1804/04/2015 CPE ORIndications: mouth qod (every Other specified other day). Take one counseling hour prior to meals. Keep refrigerated. documented as of this encounter H&P Notes Latha Luciano MD - 05/04/2014 7:46 AM CDT Pre-Endoscopy History and Physical Bev Castillo Date of : 1965 Age: [age] year old Date of Procedure: 05/04/2014 Primary care provider: Ivory Schneider Type of Endoscopy: colonoscopy Reason for Procedure: screening Type of Anesthesia Anticipated: moderate sedation HPI: Bev is a 48 year old female who will be undergoing the above procedure. Patient denies a change in her bowel habits or bleeding. A history and physical has been performed. The patient's medications and allergies have been reviewed. The risks and benefits of the procedure and the sedation options and risks were discussed with thepatient. All questions were answered and informed consent was obtained. She denies a personal or family history of anesthesia complications or bleeding disorders. Prior to Admission medications Medication Sig Start Date End Date Taking? Authorizing Provider CIPRO 500 MG OR TABS Take one tablet twice a day for up to three days to treat traveler's diarrhea. 03/18/08 Monica Castillo, VIVOTIF MONICA VACCINE CPEC OR Take one capsule by mouth qod (every other day). Take one hour prior to meals. Keep refrigerated. 03/18/08 Monica Castillo DO CHLOROQUINE PHOSPHATE 500 MG OR TABS Take one tablet by mouth weekly on the same day each week. Start 1 week prior to entering malaria area and continue for 4 weeks after leaving area. 03/18/08 Monica Castillo DO NAPROXEN None Entered Reported, Patient TRANSDERM-SCOP 1.5 MG TD PT72 1 PATCH EVERY 3 DAYS; DENIED, PT NEEDS APPT 10/16/05 Kristian Schwartz MD Allergies Allergen Reactions ??? No Known Drug Allergies No current facility-administered medications for this encounter. Patient Active Problem List Diagnosis (none) - all problems resolved or deleted History reviewed. No pertinent past medical history. History reviewed. No pertinent past surgical history. G 3 P 2 History Substance Use Topics ??? Smoking status: Never Smoker ??? Smokeless tobacco: Not on file ??? Alcohol Use: Yes Comment: Occas. family history: father may have had polyps REVIEW OF SYSTEMS: 5 point ROS negative except as noted above in HPI, including Gen., Resp., CV, GI & system review. PHYSICAL EXAM: BP 114/76 Resp 12 Ht 1.88 m (6' 2.02) Wt 68.04 kg (150 lb) BMI 19.25 kg/m2 Estimated body mass index is 19.25 kg/(m^2) as calculated from the following: Height as of this encounter: 1.88 m (6' 2.02). Weight as of this encounter: 68.04 kg (150 lb). GENERAL APPEARANCE: healthy MENTAL STATUS: alert AIRWAY EXAM: Mallampatti Class II (visualization of the soft palate, fauces, and uvula) RESP: lungs clear to auscultation - no rales, rhonchi or wheezes CV: regular rates and rhythm DIAGNOSTICS: Not indicated IMPRESSION ASA Class 1 - Healthy patient, no medical problems PLAN: Colonoscopy with possible polypectomy, possible biopsy The above has been forwarded to the consulting provider. Signed Electronically by: Latha Luciano May 04, 2014 documented in this encounter Nursing Notes Maegan Vaughan, MONIKA - 05/04/2014 9:39 AM CDT Pt alert; awaiting discharge due to having procedure and not ready for discharge documented in this encounter Miscellaneous Notes Brief Op Note - Latha Luciano MD - 05/04/2014 8:30 AM CDT [facility] Brief Operative Note Pre-operative diagnosis: SCREENING Post-operative diagnosis normal colon Procedure: Procedure(s) with comments: COLONOSCOPY - COLONOSCOPY Surgeon(s): Surgeon(s) and Role: * Latha Luciano MD - Primary Estimated blood loss: * No values recorded between 05/04/2014 12:00 AM and 05/04/2014 8:30 AM * Specimens: * No specimens in log * Findings: Normal colon Full note in Provation documented in this encounter Plan of Treatment Not on filedocumented as of this encounter Procedures Procedure Name Priority Date/Time Associated Diagnosis Comme nts COLONOSCOPY 05/04/2014 7:22 AM normal colon CDT COLONOSCOPY Routine 05/04/2014 6:59 AM Results f or this CDT procedure are i n the results section . documented in this encounter Results COLONOSCOPY (05/04/2014 6:59 AM CDT) [facility] Method Time Signature COLONOSCOPY [facility] RADIOLOGY [facility] Endoscopy Department RESULTS Patient Name: Bev Castillo ? Procedure Date: 05/04/2014 6:59:11 AM ? Date of : 1965 ?Admit Type: Outpatient ? Age: 48 ? Room: 3 ? Note Status: Finalized ?Attending : Latha Hutchins MD ? Pause for the Cause: Time Out done by . ?? Procedure: ?Colonoscopy Indications: ?Colon cancer screening in patient at increased ?risk: FH of colon sherie yps in father Providers: ?Latha Luciano MD, Anne Marie Lenz RN Referring MD: ? Ivory Shukla MD Medicines: ?Fentanyl 100 micrograms IV, Midazolam 4 mg IV, ?Zofran 4 mg IV Complications: ?No immediate complications Procedure: ?Pre-Anesthesia Assessment: ?- Prior to the procedure, a History and Physical ?was performed, and patient medications and ?allergies were reviewed. The patient is competent. ?The risks and benefits of the procedure and the ?sedation options and risks were discussed with the ?patient. All questions were answered and informed ?consent was obtained. Patient identification and ?proposed procedure were verified by the physician ?and the nurse in the procedure room. Mental Status ?E xamination: alert and oriented. Airway ?Examination: normal oropharyngeal airway and neck ?mobility. Respiratory Examination: clear to ?auscultation. CV Examination: normal. Prophylactic ?Antibiotics: The patient does not require ?prophylactic antibiotics. Prior Anticoagulants: The ?patient has taken no previous anticoagulant or ?antiplatelet agents. ASA Grade Assessment: I - A ?normal, healthy patient. After reviewing the risks ?a nd benefits, the patient was deemed in ?satisfactory condition to undergo the procedure. ?The anesthesia plan was to use moderate sedation / ?analgesia (conscious sedation). Immediately prior ?to administration of medications, the patient was ?re-assessed for adequacy to receive sedatives. The ?heart rate, respiratory rate, oxygen saturations, ?blood pressure, adequacy of pulmonary ventilation, ?and response to care were monitored throughout the ?procedure. The physical status of the patient was ?re-assessed after the procedure. ?After obtaining informed consent, the colonoscope ?was passed under direct vision. Throughout the ?procedure, the patient's blood pressure, pulse, and ?oxygen saturations were monitored continuously. The ?Colonoscope was introduced through the anus and ?advanced to the cecum, identified by appendiceal ?orifice & ileocecal valve. The quality of the bowel ?preparation was excellent. The colonoscopy was ?somewhat difficult due to significant looping. ? Findings: ? The perianal and digital rectal examinations were n ormal. The entire ? examined colon appeared normal. ? Impression: ? - The entire examined colon is normal. Recommendation: ? - Resume diet and usual medic ations. ?- Repeat colonoscopy in 5 years for screening ?purposes if father's history of polyps is ?confirmed; in 10 years if he did not have polyps. ? Natalie Luciano M.D. Latha Luciano MD Signed Date: 05/04/2014 8:41:03 AM Number of Addenda: 0 I was physically present for the entire viewing portion of t he exam. Note Initiated On: 05/04/2014 6:59:11 AM Scope Withdrawal Time: 0 hours 8 minutes 15 seconds Scope Withdrawal Time: 0 hours 8 minutes 15 seconds Total Procedure Duration: 0 hours 37 minutes 7 seconds Total Procedure Duration: 0 hours 37 minutes 7 seconds Specimen (Source) Anatomical Collection Method Collection Time Re ceived Time Location / / Volume Laterality 05/04/2014 6:59 AM CDT Ivory Shukla MD PROCEDURES Performing Organization Address City/State/ZIP Code Phon e Number RADIOLOGY RESULTS documented in this encounter Visit Diagnoses Not on filedocumented in this encounter Administered Medications Inactive Administered Medications - up to 3 most recent administrations Medication Order MAR Action Action Date Dose Rate Site 0.9 % sodium chloride IV New Bag 05/04/2014 8:09 AM CDT 100 mL/hr 100 mL/hr solution CONTINUOUS PRN, Intra-procedure, Starting on Sat05/04/14 at 0809, Until Sat05/05/14 at 1115 fentaNYL (SUBLIMAZE) injection Given 05/04/2014 7:46 AM CDT 100 mcg PRN, moderate to severe pain, Starting on Sat05/04/14 at 0746, Intra-procedure midazolam (VERSED) injection Given 05/04/2014 8:08 AM CDT 1 mg PRN, anxiety, Starting on Sat05/04/14 at 0748, Intra-procedure Given 05/04/2014 8:01 AM CDT 1 mg Given 05/04/2014 7:48 AM CDT 2 mg ondansetron (ZOFRAN) injection Given 05/04/2014 8:08 AM CDT 4 mg PRN, nausea, vomiting, Administer over 2-5 Minutes, Starting on Sat05/04/14 at 0808, Intra-procedure documented in this encounter Active and Recently Administered Medications Times are shown in CDT. PRN Medication Order 05/02/2014 05/03/2014 05/04/2014 0.9 % sodium chloride IV solution (CANCELED) 0809 (New Bag - Provider: Anne Marie Lenz RN) CONTINUOUS PRN, Intra-procedure, Startin g Sat05/04/14 at 0809, Until Sat05/05/14 at 1115 fentaNYL (SUBLIMAZE) injection (CANCELED) 0746 (Given - Provider: Anne Marie Lenz, MONIKA) PRN, Starting 05/04/14 at 0746, moderate to severe pain, Intr a-procedure midazolam (VERSED) injection (CANCELED) 0748 (Given - Provider: Anne Marie Lenz, MONIKA)0801 (Given - Provider: Anne Marie Lenz, MONIKA)0808 (Given - Provider: Anne Marie Lenz, MONIKA) PRN, Starting e 05/04/14 at 0748, anxiety, Intra-procedure ondansetron (ZOFRAN) injection (CANCELED) 0808 (Given - Provider: Anne Marie Lenz, MONIKA) PRN, nausea, vomiting, for 2 Minutes, St arting e 05/04/14 at 0808, Intra-procedure documented in this encounter Care Teams Project Hire Relationship Specialty Start Date End Date Ivory Schneider MD PCP - General grove superintendent 04/21/14 [facility] [employer] ASSISTANT CONSULT [address] [id number] documented as of this encounter
--- OUTSIDE RECORDS SUMMARY | 2022-10-26 11:44 | XMS_ITS | Encounter Summary ---
:1965 Author Organization [facility] Address [address] [place] [address] Care Team Providers Name Role Phone Ivory Schneider MD Primary Care Provider [phone] Reason for Visit Reason Comments Ankle Pain Encounter Details Date Type Department Care Team Description 11/08/2016 Emergency [facility] Pilo Liu, Spra in of left ankle, [facility] t unspecified ligament, [address] EMERGENCY PHYSICIAN [place], [place] [address] 54[address] [facility] [phone] [place], [place] [address] (Wo rk) Social History Tobacco Use Types Packs/Day Years Used Date Smoking Tobacco: Never Smokeless Tobacco: Never Alcohol Use Standard Drinks/Week Comments Yes 0 (1 standard drink = 0.6 oz pure alcoho l) Occas. Sex Assigned at Date Recorded Not on file documented as of this encounter Last Filed Vital Signs Vital Sign Reading Time Taken Comments Blood Pressure 116/71 11/08/2016 10:08 PM INDEPENDENT LIVING INSTRUCTOR Pulse 67 11/08/2016 10:08 PM INDEPENDENT LIVING INSTRUCTOR Temperature 37.5 ??C (99.5 ??F) 11/08/2016 10:08 PM INDEPENDENT LIVING INSTRUCTOR Respiratory Rate 18 11/08/2016 10:08 PM INDEPENDENT LIVING INSTRUCTOR Oxygen Saturation 100% 11/08/2016 10:08 PM INDEPENDENT LIVING INSTRUCTOR Inhaled Oxygen Concentration - - Weight 70.8 kg (156 lb) 11/08/2016 10:08 PM INDEPENDENT LIVING INSTRUCTOR Height 188 cm (6' 2) 11/08/2016 10:08 PM INDEPENDENT LIVING INSTRUCTOR Body Mass Index 20.03 11/08/2016 10:08 PM INDEPENDENT LIVING INSTRUCTOR documented in this encounter Discharge Instructions Discharge InstructionsPilo Liu MD - 11/08/2016 11:38 PM CST Images from the original note were not included. Aircast?? Traditional splints and casts for the foot and ankle protect the injury by preventing movement at the joints. However, many injuries heal better and faster if the injured joint can be moved, while protected at the same time. This is the reason for using an Aircast. There are two common type of AirCasts: 1) Air-Stirrup?? ankle splint This is often used to treat ankle sprains. It contains padded air cells in a plastic frame that fitsinto your shoe. This allows you to walk while preventing the ankle joint from rolling in or out causing re-injury. Ankle sprains can take 4-6 weeks to heal. Persons with severe injuries or over age 60 may require more time to heal. During that time, you are prone to re- injury by suddenly twisting your ankle again while the ligaments are still weak. When treating a sprain, the Air-Stirrup splint should be worn whenever walking for at least four weeks, or as long as you continue to have ankle pain. You should continue to wear it at least 6 weeks whenever running, playing sports or any activity where there is increased risk of re-injury. Talk to your doctor for specific advice about the treatment of your condition. 2) SP-Walker?? boot This is a short boot that provides support and protection to the foot and ankle while allowing you to walk. It contains padded air cells that provide compression and help circulation. It is used for both foot and ankle injuries - both sprains and minor fractures. Talk to your doctor for specific advice about the treatment of your condition. Air-Stirrup?? and SP-Walker?? are trademarks of [employer]. For more information about their products, see www.[employer]. ?? 4215-1255 [employer]. [address] [place] [address], [place] [address]. All rights reserved. This information is not intended as a substitute for professional medical care. Always follow your healthcare professional's instructions. Treating Ankle Sprains Treatment will depend on how bad your sprain is. For a severe sprain, healing may take 3 months or more. Right after your injury: Use R.I.C.E. ?? Rest: At first, keep weight off the ankle as much as you can. You may be given crutches to help you walk without putting weight on the ankle. ?? Ice: Put an ice pack on the ankle for 15 minutes. Remove the pack and wait at least 30 minutes. Repeat for up to 3 days. This helps reduce swelling. ?? Compression: To reduce swelling and keep the joint stable, you may need to wrap the ankle with anelastic bandage. For more severe sprains, you may need an ankle brace or a cast. ?? Elevation: To reduce swelling, keep your ankle raised above your heart when you sit or lie down. Medicine Your??healthcare provider??may suggest oral non-steroidal anti-inflammatory medicine (NSAIDs), such as ibuprofen. This relieves the pain and helps reduce any swelling. Be sure to take your medicine as directed. Contrast baths After 3 days, soak your ankle in warm water for 30 seconds, then in cool water for 30 seconds. Go back and forth for 5 minutes. Doing this every 2 hours will help keep the swelling down. Exercises After about 2 to 3 weeks, you may be given exercises to strengthen the ligaments and muscles in the ankle. Doing these exercises will help prevent another ankle sprain. Exercises may include standing on your toes and then on your heels and doing ankle curls. Ankle curls ?? Sit on the edge of a sturdy table or lie on your back. ?? Pull your toes toward you. Then point them away from you. Repeat for 2 to 3 minutes. ?? [phone] [employer]. [address] [place] [address]. All rights reserved. This information is not intended as a substitute for professional medical care. Always follow your healthcare professional's instructions. PENDENT LIVING INSTRUCTOR documented in this encounter Medications at Time of Discharge Medication Sig Dispensed Refills Start Date End Date aspirin 81 MG tablet Take by mouth daily 0 documented as of this encounter ED Notes Marcela Lopez RN - 11/08/2016 11:50 PM CST AVS reviewed. PENDENT LIVING INSTRUCTOR Pilo Liu MD - 11/08/2016 11:02 PM CST History Chief Complaint: Ankle Pain HPI Bev Castillo is a 51 year old female who presents with left ankle pain. The patient slipped andfell down approximately 4 steps. The patient states that she has left ankle pain and that her left ankle is stiff. Allergies: Bees Medications: Aspirin 81 mg Past Medical History: Post concussive syndrome Cerebral vascular accident Past Surgical History: History reviewed. No pertinent past surgical history. Family History: History reviewed. No pertinent family history. Social History: Marital Status: Presents to the ED with family. Alcohol Use: Occasionally PCP: Ivory Ford Review of Systems Musculoskeletal: Positive for left ankle pain. All other systems reviewed and are negative. Physical Exam First Vitals: BP: 116/71 mmHg Pulse: 67 Temp: 99.5 ??F (37.5 ??C) Resp: 18 Height: 188 cm (6' 2) Weight: 70.761 kg (156 lb) SpO2: 100 % Physical Exam Constitutional: Patient is well appearing. No distress. Head to toe trauma except. Head: Atraumatic. Mouth/Throat: Oropharynx is clear and moist. No oropharyngeal exudate. Eyes: Conjunctivae and EOM are normal. No scleral icterus. Neck: Normal range of motion. Neck supple. Cardiovascular: Normal rate, regular rhythm, normal heart sounds and intact distal pulses. Pulmonary/Chest: Breath sounds normal. No respiratory distress. Abdominal: Soft. Bowel sounds are normal. No distension. No tenderness. No rebound or guarding. Musculoskeletal: Normal range of motion. No edema or tenderness. Left lateral malleolus edema and tenderness. Neurologically and vascularly intact distally. Neurological: Alert and orientated to person, place, and time. No observable focal neuro deficit Skin: Warm and dry. No rash noted. Not diaphoretic. Emergency Department Course Imaging: Ankle XR, G/E 3 views, left: Probable small avulsion fracture of the tip of the lateral malleolus of the left ankle with adjacent soft tissue swelling. Report per radiology. Radiographic findings were communicated with the patient and family who voiced understanding of the findings. Interventions: (2318) Ibuprofen, 600 mg, PO Emergency Department Course: Nursing notes and vitals reviewed. I performed an exam of the patient as documented above. The patient was sent for a left ankle x-ray while in the emergency department, findings above. (1165) Recheck with the patient and family. Findings and plan explained to the patient and family. Patient discharged home with instructions regarding supportive care, medications, and reasons to return. The importance of close follow-up was reviewed. Impression & Plan Medical Decision Making: Pt has ankle sprain small avulasion fracture possible but pt is weight bearing here and wants to return to activity as soon as possible. Educated on healing and splint/cast vs boot vs air splint. Wantsair splint at this time and will follow up with ortho for worsenign need for boot or splint. Diagnosis: ICD-10-CM 1. Sprain of left ankle, unspecified ligament, sequela S93.402S Disposition: discharged to home IKady, am serving as a scribe on 11/08/2016 at 11:08 PM to personally document services performed by Dr. Liu based on my observations and the provider's statements to me. 11/08/2016 [facility] EMERGENCY DEPARTMENT Pilo Liu MD 11/09/16 0100 PENDENT LIVING INSTRUCTOR Arina Garcia RN - 11/08/2016 10:10 PM CST Patient comes in for evaluation of a mechanical fall. Was outside a episcopal and slipped and fell downapprox. 4 stairs. Now complaining of left ankle pain. ABCs intact. PENDENT LIVING INSTRUCTOR documented in this encounter Plan of Treatment Not on filedocumented as of this encounter Procedures Procedure Name Priority Date/Time Associated Diagnosis Comme nts XR ANKLE LEFT G/E 3 STAT 11/08/2016 10:53 PM R esults for this VIEWS INDEPENDENT LIVING INSTRUCTOR procedure are i n the results section. documented in this encounter Results Ankle XR, G/E 3 views, left (11/08/2016 10:53 PM INDEPENDENT LIVING INSTRUCTOR) Anatomical Region Laterality Modality Leg, Ankle, Foot Left Computed Radiography Specimen (Source) Anatomical Location Collection Method / Collectio n Time Received Time / Laterality Volume Impressions 11/08/2016 10:58 PM INDEPENDENT LIVING INSTRUCTOR IMPRESSION: Probable small avulsion fracture of the tip of the lateral malleolus of the left ankle with adjacen t soft tissue swelling. SUDEEP DORSEY MD Narrative 11/08/2016 10:58 PM INDEPENDENT LIVING INSTRUCTOR LEFT ANKLE THREE OR MORE VIEWS ?? 11/08/2016 10:53 PM HISTORY: Fall. COMPARISON: None. FINDINGS: Mild soft tissue swelling over the lateral malleolar region of the left ankle. There is a tiny cresc ent of bone density just inferior to the tip of the lateral malle olus that could represent an acute avulsion. The remainder of the exa m is normal. Procedure Note Sudeep Dorsey MD - 11/08/2016Forma tting of this note might be different from the original. LEFT ANKLE THREE OR MORE VIEWS 6 10:53 PM HISTORY: Fall. COMPARISON: None. FINDINGS: Mild soft tissue swelling over the lateral malleolar region of the left ankle. There is a tiny cresc ent of bone density just inferior to the tip of the lateral malle olus that could represent an acute avulsion. The remainder of the exa m is normal. IMPRESSION: Probable small avulsion frac ture of the tip of the lateral malleolus of the left ankle with adjacen t soft tissue swelling. SUDEEP DORSEY MD Pilo Liu MD IMG DIAGNOSTIC IMAGING ORDER CALLUM documented in this encounter Visit Diagnoses Diagnosis Sprain of left ankle, unspecified ligame nt, sequela documented in this encounter Administered Medications Inactive Administered Medications - up to 3 most recent administrations Medication Order MAR Action Action Date Dose Rate Site ibuprofen (ADVIL/MOTRIN) tablet Given 11/08/2016 11:18 PM INDEPENDENT LIVING INSTRUCTOR 60 0 mg 600 mg 600 mg, Oral, ONCE, On Marzena 11/08/16 at 2315, For 1 dose, Do not give within 6 hours of ketorolac (TORADOL). documented in this encounter Active and Recently Administered Medications Times are shown in INDEPENDENT LIVING INSTRUCTOR. Scheduled Medication Order 11/06/2016 11/07/2016 11/08/2016 ibuprofen (ADVIL/MOTRIN) tablet 600 mg (COMPLETED) 2318 (Given - Provider: Marcela Lopez RN) 600 mg, Oral, ONCE, On Marzena 11/08/16 at 2 315, For 1 dose, Do not give within 6 hours of ketorolac (TORADOL). documented in this encounter Care Teams Funeral Home Location Manager Relationship Specialty Start Date End Date Ivory Schneider MD PCP - General supervisor cutting and sewing room 04/21/14 [facility] SUPPORT ENGINEER CONSULT [address] [address] documented as of this encounter
--- OUTSIDE RECORDS SUMMARY | 2022-10-26 11:44 | XMS_ITS | Encounter Summary ---
:1965 Author Organization [facility] Address [address] [place] [address] Care Team Providers Name Role Phone Ivory Schneider MD Primary Care Provider Reason for Referral Diagnostic Imaging Mammo - Closed Specialty Diagnoses / Procedures Referred By Contact Refer red To Contact Radiology. Diagnoses Visit for screening mammogram [facility] Procedures [place] Screening MD Tamiko Carr [place] QUALITY MANAGEMENT NURSE CON SULT [address] [place] [phone] Fax: Referral ID Status Reason Start Date Expiration Date Visits Requ ested Visits Authorized [id number] Closed 01/14/2018 01/14/2019 1 1 Reason for Visit Diagnostic Imaging Mammo - Closed Specialty Diagnoses / Procedures Referred By Contact Refer red To Contact Radiology. Diagnoses Visit for screening mammogram Ivory [facility] Procedures MARIA DOLORES Screening MD Tamiko Carr [place] [facility]AL[facility] [employer]NAGEMENT NURSE CON SULT [address] [place] [phone] Fax: Referral ID Status Reason Start Date Expiration Date Visits Requ ested Visits Authorized [id number] Closed 01/14/2018 01/14/2019 1 1 Encounter Details Date Type Department Care Team Description 01/27/2018 Hospital Encounter [facility] Anshul MillieRoma rosales isijoy for screening [facility] Breast Marilla Ivory Rneteria MD mammogram [address] [facility] [address] MANUAL PLATE FILLER CONSULT [place], [place] [address] [phone] [facility] [address] [address] Social History Tobacco Use Types Packs/Day Years Used Date Smoking Tobacco: Never Smokeless Tobacco: Never Alcohol Use Standard Drinks/Week Comments Yes 0 (1 standard drink = 0.6 oz pure alcoho l) Occas. Sex Assigned at Date Recorded Not on file documented as of this encounter Medications at Time of Discharge Medication Sig Dispensed Refills Start Date End Date aspirin 81 MG tablet Take by mouth daily 0 documented as of this encounter Plan of Treatment Not on filedocumented as of this encounter Procedures Procedure Name Priority Date/Time Associated Diagnosis Comme [facility] SCREENING Routine 01/27/2018 3:45 PM Visit for screening Re sults for this DIGITAL BILATERAL CDT mammogram procedure are in the results section. documented in this encounter Results [place] Screening Digital Bilateral (01/27/2018 3:45 PM CDT) Anatomical Region Laterality Modality Breast Bilateral Mammography Specimen (Source) Anatomical Location Collection Method / Collectio n Time Received Time / Laterality Volume Impressions 01/29/2018 8:06 AM CDT IMPRESSION: BI-RADS CATEGORY: 1 - ??NEGATIVE. RECOMMENDED FOLLOW-UP: Annual Mammograph y. The patient will be notified of the resu lts. SHALINI HARRIS MD Narrative 01/29/2018 8:06 AM CDT Examination: Bilateral digital screening mammography with computer aided detection, 01/27/2018 3:45 PM. Comparison: 01/02/17, 12/31/13 History: No current breast concerns. BREAST DENSITY: Extremely dense. COMMENTS: ??No suspicious finding. Procedure Note Shalini Harris MD - 01/29/2018 Examination: Bilateral digital screening mammography with computer aided detection, 01/27/2018 3:45 PM. Comparison: 01/02/17, 12/31/13 History: No current breast concerns. BREAST DENSITY: Extremely dense. COMMENTS: No suspicious finding. IMPRESSION: BI-RADS CATEGORY: 1 - NEGATI VE. RECOMMENDED FOLLOW-UP: Annual Mammograph y. The patient will be notified of the resu lts. SHALINI HARRIS MD Ivory Shukla MD IMG MAMMOGRAPHY ORDERABLES documented in this encounter Visit Diagnoses Diagnosis Visit for screening mammogram Other screening mammogram documented in this encounter Care Teams Radiation / Chemistry Technician Relationship Specialty Start Date End Date Ivory Schneider MD PCP - General performance improvement specialist 04/21/14 [facility] QUALITY MANAGEMENT NURSE CONSULT [address] [place] [address] documented as of this encounter
--- OUTSIDE RECORDS SUMMARY | 2022-10-26 11:44 | XMS_ITS | Encounter Summary ---
:1965 Author Organization [facility] Address [address] [place] [address] Care Team Providers Name Role Phone Ivory Schneider MD Primary Care Provider [phone] Reason for Visit Reason Onset Date Comments Panel Management 05/03/2015 pt failing at pap Encounter Details Date Type Department Care Team Description 05/03/2015 Telephone [facility] Anna Schneider anagement (pt [facility] [place] Ivory Renteria MD failing at pap) [id number] [facility] DISTILLATION OPERATOR HELPER [place], [place] CONSULT [phone] [facility] [phone] [place] [address] Social History Tobacco Use Types Packs/Day Years Used Date Smoking Tobacco: Never Smokeless Tobacco: Never Alcohol Use Standard Drinks/Week Comments Yes 0 (1 standard drink = 0.6 oz pure alcoho l) Occas. Sex Assigned at Date Recorded Not on file documented as of this encounter Miscellaneous Notes Telephone Encounter - Aminta Quinones MA - 05/10/2015 11:19 AM CDT 2 calls will send letter. Aminta Quinones CMA Telephone Encounter - Trisha Whitman CMA - 05/03/2015 3:30 PM CDT Panel Management Review Date of last visit with a [place] provider: Dr. MCKINNEY on 04/04/2015. Date of next visit with a [place] provider: None. Problem List Patient Active Problem List Diagnosis ??? Post concussive syndrome ??? CARDIOVASCULAR SCREENING; LDL GOAL LESS THAN 160 Health Maintenance List Health Maintenance Topic Date Due ??? PAP SCREENING Q3 YR (SYSTEM ASSIGNED) 1985 ??? LIPID SCREEN Q5 YR FEMALE (SYSTEM ASSIGNED) 2009 ??? TETANUS IMMUNIZATION (SYSTEM ASSIGNED) 01/29/2013 ??? INFLUENZA VACCINE (SYSTEM ASSIGNED) 07/19/2015 ??? MAMMO SCREEN Q2 YR (SYSTEM ASSIGNED) 11/25/2016 ??? COLON CANCER SCREEN (SYSTEM ASSIGNED) 05/04/2024 For diabetic patients with hyperlipidemia, only choose diabetes. Patient has the following on her problem list: Composite cancer screening Chart review shows that this patient is due/due soon for the following Pap Smear No results found for this basename: pap Past Surgical History Procedure Laterality Date ??? Colonoscopy 05/04/2014 Procedure: COLONOSCOPY; Surgeon: Latha Luciano MD; Location: GI Is hysterectomy listed in surgical history? No Is mastectomy listed in surgical history? No Tobacco History History Smoking status ??? Never Smoker Smokeless tobacco ??? Never Used Summary: Patient is due/failing the following: PAP Action needed: Patient needs office visit for PE/PAP. Type of outreach: Phone, left message for patient to call back. Questions for provider review: None Please indicate office visit, lab, MTM, or nurse appt if needed. Indicate fasting or not fasting. Trisha Whitman/STACEY [place]---[facility] [facility] Chart routed to Care Team . documented in this encounter Plan of Treatment Not on filedocumented as of this encounter Visit Diagnoses Not on filedocumented in this encounter Care Teams Physician Relationship Specialty Start Date End Date Ivory Schneider MD PCP - General refuse laborer 04/21/14 [facility] DISTILLATION OPERATOR HELPER CONSULT [address] [place] [phone] documented as of this encounter
--- OUTSIDE RECORDS SUMMARY | 2022-10-26 11:44 | XMS_ITS | Encounter Summary ---
:1965 Author Organization [place] Address [facility] [place] [address] Care Team Providers Name Role Phone Ivory Schneider MD Primary Care Provider [phone] Reason for Visit Auth/Cert - Closed Specialty Diagnoses / Procedures Referred By Contact Refer red To Contact Gastroenterology Diagnoses SCREENING Endoscopy Procedures COLONOSCOPY [address] [phone] Phone: Referral ID Status Reason Start Date Expiration Date Visits Requ ested Visits Authorized [id number] Closed 1 1 Encounter Details Date Type Department Care Team Description 05/04/2014 Hospital Encounter [facility] Latha Luciano [facility] Endoscopy MD Patricia [address] COLON RECTAL SURG [address] [phone] [facility] [phone] [address] [address] (Wo rk) Social History Tobacco Use Types [...] EVERY 3 DAYS; 10 3 10/16/2005 04/04/2015 [id number]: DENIED, PT NEEDS APPT Encounter for long-term [...] days to treat traveler's diarrhea. 03/18/08 Monica Castillo DO VIVOTIF MONICA VACCINE CPEC OR Take one [...] in this encounter Nursing Notes Maegan Vaughan, RN - 05/04/2014 9:39 AM CDT Pt alert; awaiting discharge due to having procedure and not ready for discharge documented in this encounter Miscellaneous Notes Brief Op Note - Latha Luciano MD - 05/04/2014 8:30 AM CDT [facility] Brief Operative Note Pre-operative diagnosis: SCREENING [...] encounter Results COLONOSCOPY (05/04/2014 6:59 AM CDT) [facility] Method Time Signature COLONOSCOPY [facility] RADIOLOGY [facility] Endoscopy Department RESULTS Patient Name: Bev Ashtonjose manuel ? Procedure Date: 05/04/2014 6:59:11 AM ? Date of : 1965 ?Admit Type: Outpatient ? Age: 48 ? Room: 3 ? Note Status: Finalized ?Attending MD: Latha Hutchins MD ? Pause for the Cause: Time Out done by . ?? Procedure: ?Colonoscopy Indications: ?Colon cancer screening in patient at increased ?risk: FH of colon sherie yps in father Providers: ?Latha Luciano MD, Anne Marie Lenz RN Referring : ? Ivory Shukla MD Medicines: ?Fentanyl 100 [...] Diagnoses Not on filedocumented in this encounter Active and Recently Administered Medications Times are shown in CDT. PRN Medication Order 05/02/2014 05/03/2014 05/04/2014 0.9 % sodium chloride IV solution (CANCELED) 0809 (New Bag - Provider: Anne Marie Lenz, RN) CONTINUOUS PRN, Intra-procedure, Startin g Sat05/04/14 at 0809, Until Sat05/05/14 at 1115 fentaNYL (SUBLIMAZE) injection (CANCELED) 0746 (Given - Provider: Anne Marie Lenz, RN) PRN, Starting Sat05/04/14 at 0746, moderate to severe pain, Intr a-procedure midazolam (VERSED) injection (CANCELED) 0748 (Given - Provider: Anne Marie Lenz, RN)0801 (Given - Provider: Anne Marie Lenz, RN)0808 (Given - Provider: Anne Marie Lenz, RN) PRN, Starting Sat05/04/14 at 0748, anxiety, Intra-procedure ondansetron (ZOFRAN) injection (CANCELED) 0808 (Given - Provider: Anne Marie Lenz, RN) PRN, nausea, vomiting, for 2 Minutes, St arting e 05/04/14 at 0808, Intra-procedure documented in this encounter Care Teams Brewery Pumper Relationship Specialty Start Date End Date Ivory Schneider MD PCP - General assistant professor of geography 04/21/14 [facility] INTERNATIONAL TAX MANAGER CONSULT [address] [place] [phone] documented as of this encounter
--- OUTSIDE RECORDS SUMMARY | 2022-10-26 11:44 | XMS_ITS | Encounter Summary ---
:1965 Author [facility] Address [address] [place] [address] Care Team Providers Name Role Phone Pcp, Pt Declines Primary Care Provider Reason for Visit Reason Comments Skin Check Encounter Details Date Type Department Care Team Description 03/11/2014 Office Visit [facility] [address] Rosa Elena Cota MD Actinic keratosis of left zoroastrian (Primar y Dx); Dermatology [address] Dysplastic nevi [address] [place] [place] [address] [address] [place], [place] [phone] (Work) [phone] Social History Tobacco Use Types Packs/Day Years Used Date Smoking Tobacco: Never Assessed Sex Assigned at Date Recorded Not on file documented as of this encounter Patient Instructions Patient Martha Erickson RN - 03/11/2014 9:10 AM CDT Thank you for choosing Dermatology at [facility]! We welcome your feedback. Comment cards are located in our lobby. For questions, please call and choose one of the following options: - for appointments and scheduling, press 1 - to speak with a nurse about a medical question from 7:30 am to 5 pm, press 2 - after hours emergencies, follow the instructions to be transferred to the religious education coordinator provider For medication refills, please contact your pharmacy. For questions regarding billing, please contact [employer] [facility] at . Please consider enrolling in [employer]. Please follow the instructions below to securely access your online medical record. [employer] allows you to send messages to your doctor, view your test results, renew your prescriptions, schedule appointments, and more. How Do I Sign Up? 1. In your Internet browser, go to: [email or web address] 2. Click on the Enter Activation Code link under the New User? section. You will see the New Member Sign Up page. 3. Enter your [employer] Activation Code exactly as it appears below. You will not need to use this code after you???ve completed the sign-up process. If you do not sign up before the expiration date, youmust request a new code. [employer] Activation Code: [email or web address] Expires: 04/10/2014 9:10 AM 4. Enter the last four digits of your Social Security Number ([id number]) and Date of (mm/dd/yyyy) as indicated and click Next. You will be taken to the next sign-up page. 5. Create a [employer] ID. This will be your [employer] login ID and cannot be changed, so think of one that is secure and easy to remember. 6. Create a [employer] password. You can change your password at any time. 7. Enter your Security Question and Answer. This can be used at a later time if you forget your password. Click Next. 8. Enter your e-mail address. You will receive e-mail notification when new information is availablein [employer]. 9. Click Sign In. You can now view your medical record. Additional Information If you have questions, you can call [phone] to talk to our [employer] staff. Remember, [employer] is NOT to be used for urgent needs. For medical emergencies, dial 911. documented in this encounter Progress Notes Rosa Elena Cota MD - 03/11/2014 9:58 AM CDT DERMATOLOGY NEW PATIENT VISIT NOTE: Chief Complaint: Lesion of concern on the left zoroastrian. Derm History: Dysplastic Nevus left breast Melasma HPI: Bev Castillo is a 48 y.o. female who presents today for evaluation of a rough, tender lesion on her left zoroastrian near her eyebrow for two years. She has had no previous treatment. She has a history of a dysplastic nevus on her left breast. The patient has a family history of nonmelanoma skin cancer. Shedesires a total body skin screening examination today. She has not noticed any changing moles of concern. FHx: Pertinent items are in HPI. ROS: The patient denies any other concerning skin lesions or rashes. There are no other pertinent symptoms expressed by the patient today. Medications: Reviewed in Epic. Allergies: Reviewed in Epic. PMHx: Pertinent items are in HPI. Physical Examination: GENERAL: The patient is alert & oriented x3 in NAD, pleasant and cooperative, displaying a Cantu Skin Type 4. CUTANEOUS: A total body skin examination was performed including the scalp, face, ears, neck, chest,breasts, abdomen, back, buttocks, perianal area, all four extremities, hands, feet, and external genitalia. Palpation and visual inspection of the nails was done. Mucous membranes were not examined. Assessment & Plan: 1. Actinic Keratosis: There is a discrete 6mm scaling erythematous papule on the left zoroastrian near the eyebrow. Plan: The risks and benefits of the freezing procedure including infection, scarring, and inflammation with blistering were explained to the patient. The patient agreed to proceed with the treatment and understood additional treatments may be necessary. Liquid Nitrogen. The lesion(s) was treated with liquid nitrogen using a canister application x 3. The total number of lesions treated today was one. The patient tolerated the procedure well and wound care instructions were provided to apply Aquaphoror Vaseline twice per day. 2. History of Dysplastic Nevi: There are multiple benign to slightly atypical appearing dark brown papules randomly scattered on the trunk and extremities. None appear to be melanoma. Plan: Continue close surveillance. Patient Education and Counselling: re ABCDE's, need for regular self examination, avoidance of tanning funez use if applicable, and sun protection with sunscreen use and protective clothing. Recommend yearly skin cancer screenings. An appointment should be made if any of the moles change in color, shape, size, thickness, itch, or bleed. The patient was advised to RTC in 1 year. Rosa Elena Cota MD (Primary Provider) documented in this encounter Plan of Treatment Upcoming Encounters Date Type Specialty Care Team Description 06/19/2023 Appointment Dermatology Rosa Elena Cota M D [address] [place] [phone] (Wo rk) documented as of this encounter Visit Diagnoses Diagnosis Actinic keratosis of left zoroastrian - Prima ry Actinic keratosis Dysplastic nevi Benign neoplasm of skin, site unspecifie d documented in this encounter Care Teams Security Alarm Technician Relationship Specialty Start Date End Date Pcp, Tevin Basurto MD PCP - General 03/11/14 07/18/16 [place] [address] documented as of this encounter
--- OUTSIDE RECORDS SUMMARY | 2022-10-26 11:44 | XMS_ITS | Encounter Summary ---
:1965 Author Organization [place] Address [facility] [facility] [place] [address] Care Team Providers Name Role Phone Ivory Schneider MD Primary Care Provider [phone] Reason for Referral Consultation - Closed Specialty Diagnoses / Procedures Referred By Contact Refer red To Contact Diagnoses Post concussive syndrome Kenyatta Amador [facility] MD [address] [place] [address] [address] [place] [address] Phone: Fax: Referral ID Status Reason Start Date Expiration Date Visits Requ ested Visits Authorized [id number] Closed 04/04/2015 10/01/2015 1 1 Reason for Visit Reason Comments ER F/U went to ER on 03/28/2015 for head injury- concussion. Pt still having headaches- pt thinks they ar e getting worse. Eyes also feel strained. Encounter Details Date Type Department Care Team Description 04/04/2015 Office Visit [facility]ador [facility] [place] syndrome (Primary Dx) [address] [address] [phone] Social History Tobacco Use Types Packs/Day Years Used Date Smoking Tobacco: Never Smokeless Tobacco: Never Alcohol Use Standard Drinks/Week Comments Yes 0 (1 standard drink = 0.6 oz pure alcoho l) Occas. Sex Assigned at Date Recorded Not on file documented as of this encounter Last Filed Vital Signs Vital Sign Reading Time Taken Comments Blood Pressure 94/56 04/04/2015 10:38 AM CDT Pulse 67 04/04/2015 10:38 AM CDT Temperature 36.5 ??C (97.7 ??F) 04/04/2015 10:38 AM CDT Respiratory Rate 16 04/04/2015 10:38 AM CDT Oxygen Saturation 99% 04/04/2015 10:38 AM CDT Inhaled Oxygen Concentration - - Weight 70.7 kg (155 lb 12.8 oz) 04/04/2015 10:38 AM CDT Height - - Body Mass Index 19.99 05/04/2014 7:09 AM CDT documented in this encounter Patient Instructions Patient InstructionsKenyatta Amador MD - 04/04/2015 11:16 AM CDT Images from the original note were not included. Improving Cognition After Traumatic Brain Injury A traumatic brain injury (TBI) is a jolt to your brain that changes the way your brain works. This type of injury can change the way you think, act, move, and feel. One of the most common symptoms of TBI is slowed thinking. After TBI, you may have trouble remembering things, getting organized, or finding the right words to use when speaking. These types of brain functions are called cognition. TBI symptoms, such as anger, fear, stress, or trouble sleeping, can slow down your thinking even more. Some medications used after a TBI to reduce anxiety, pain, or depression can also slow down cognition. That???s why health care providers are careful about giving medications for a TBI. For these reasons, it is very important to learn ways to improve cognition after a TBI. Common TBI Cognition Problems Changes in your brain after a TBI can affect the way your brain takes in and stores information. This can cause your thinking process to be slower and make it harder to stay focused. Here are some common problems you might have: ?? You might lose some memory. After a TBI you could have trouble storing and finding memories. The most common type of memory loss after a TBI is called short-term memory loss. Short-term memories arememories of things that happened about 30 minutes earlier. One example is going to the store and forgetting what you went there to buy. ?? You might have a hard time getting organized. Many people with a TBI complain that they have trouble doing more than a few things at once. You might put on the TV and forget about food that is cooking on the stove. You might start projects or make plans but have trouble following through. ?? You might not be able to find the right words to use. Everybody has had the experience of having a word on the ???tip of the tongue,?? but not being able to remember it. After a TBI, this type of problem may become more frequent. You may struggle to find the words you want to use or use wrong words instead. Improving Cognition After TBI Specialists who work in TBI recovery programs are trained to look for and treat cognition problems. If you are in such a program, take advantage of their help. There are also many things you can do on your own to improve cognition: ?? Think of your brain as a muscle. You can help your brain improve by exercising it and keeping it active. Practice memorizing things, or work on crossword puzzles. A memory specialist can teach you different ways to improve your memory. ?? To avoid losing your keys, wallet, or important papers, have one place at home where you keep them. ?? Write things down. Make lists of tasks you need to remember when those things are still fresh in your mind. Keep a to-do list and fill in a daily conference planner for the days ahead. ?? Break down your chores each day into easy pieces. Do one thing at a time and then move on to the next thing. ?? If you are struggling to find the right word, talk around the word by using other similar words. You can sometimes find the word you want by going through the alphabet for the right first letter. ?? Go to bed and get up at the same time every day. Being tired during the day makes cognition worse. Don???t try to do too much when you???re tired. ?? Avoid stressful situations and strong emotions. Learn ways to reduce stress. Try exercise, deep breathing, massage, listening to music, or doing an activity or hobby you enjoy. ?? Avoid caffeine, alcohol, and nicotine. Cognition problems can cause some people to make bad decisions. One of the worst decisions you can make is to treat your symptoms with drugs or alcohol. Also, medications are usually not the answer forcognition problems. Take only medication prescribed by your health care provider. Take no other medicines, even [id number] ones, without checking with your health care provider first. Cognition problems and other symptoms of a TBI usually get better over time. The time it will take your brain to recover is unpredictable, because every brain is a little different and no two TBIs are the same. Also, be sure to let your health care provider know if your symptoms are getting worse. ?? [id number] [employer]. [address] [place] [address]. All rights reserved. This information is not intended as a substitute for professional medical care. Always follow your healthcare professional's instructions. documented in this encounter Progress Notes Kenyatta Amador MD - 04/04/2015 10:41 AM CDT SUBJECTIVE: Bev Castillo is a 49 year old female who presents to clinic today for the following health issues: ED/UC Followup: Facility: [facility] Date of visit: 03/28/2015 Reason for visit: head injury, concussion without loss of consciousness Current Status: stable, still having headaches and eye pain- strain 03/27/15 Was putting a tarp over a wood pile in her yard, hit her head on a tree as she was completing the arc [place] progressively getting worse Denies syncope Today: pressure on temples, aches in neck and forehead Tension in eye muscles persist Worked half a day, Taking Tylenol 1000 mg at bedtime Decreasing screen time Problem list and histories reviewed & adjusted, as indicated. ROS: MUSCULOSKELETAL: NEGATIVE for muscle spasm and muscle weakness NEURO: NEGATIVE for behavior changes, paresthesias, radicular pain and weakness PSYCHIATRIC: NEGATIVE for agitation, hypersomnia or insomnia OBJECTIVE: BP 94/56 Pulse 67 Temp(Src) 97.7 ??F (36.5 ??C) (Oral) Resp 16 Wt 155 lb 12.8 oz (70.67 kg) SpO2 99% LMP 01/18/2015 (Approximate) Body mass index is 19.99 kg/(m^2). GENERAL: healthy, alert, well nourished, well hydrated, no distress HENT: ear canals- normal; TMs- normal; Mouth- no ulcers, no lesions NECK: supple RESP: lungs clear to auscultation CV: regular rates and rhythm, MS: extremities- no gross deformities noted, no edema, normal cervical spine ROM, tender trapezius muscles NEURO: CN II to grossly intact, Romberg negative, normal finger to nose and rapid alternating hand movements, strength and tone- normal, sensory exam- grossly normal, mentation- intact, speech- normal,reflexes- symmetric PSYCH: Alert and oriented times 3; speech- coherent , normal rate and volume; able to articulate logical thoughts, able to abstract reason, no tangential thoughts, no hallucinations or delusions, affect- normal ASSESSMENT/PLAN: Bev was seen today for er f/u. Diagnoses and associated orders for this visit: Post concussive syndrome - NEUROLOGY ADULT REFERRAL Discussed: Importance of being seen at the [facility]. Symptoms can last for over 3 months May have mood changes in about a month Schedule Tylenol every 8 hrs for the next 5 days Stay home to rest and may travel to [place] for a training course for work on 04/09/15 if feeling better Activity as tolerated Kenyatta Amador MD [facility] documented in this encounter Nursing Notes Brittney Breaux, BOAT DRIVER - 04/04/2015 10:40 AM CDT Chief Complaint Patient presents with ??? ER F/U went to ER on 03/28/2015 for head injury- concussion. Pt still having headaches- pt thinks they are getting worse. Eyes also feel strained. Initial BP 94/56 Pulse 67 Temp(Src) 97.7 ??F (36.5 ??C) (Oral) Resp 16 Wt 155 lb 12.8 oz (70.67 kg) SpO2 99% LMP 01/18/2015 (Approximate) Estimated body mass index is 19.99 kg/(m^2) as calculated from the following: Height as of 05/04/14: 6' 2.02 (1.88 m). Weight as of this encounter: 155 lb 12.8 oz (70.67 kg). BP completed using cuff size regular Right Arm Health Maintenance reviewed - Yes: (pt is aware of her HM, pt had pap smear in 12/2014 with Ismael Montano Ob) Tobacco Verified: Yes Family History Updated: Yes MyChart Offered: Yes Immunizations Up to Date: Yes- pt states her tdap is good, she will check her records and then let us know. Brittney Breaux CMA documented in this encounter Plan of Treatment Scheduled Referrals Name Type Priority Associated Diagnoses [facility] Referral Routine Post concussive syndrome Ordered: 04/04/2015 REFERRAL documented as of this encounter Visit Diagnoses Diagnosis Post concussive syndrome - Primary Postconcussion syndrome documented in this encounter Care Teams Reel Winder Relationship Specialty Start Date End Date Ivory Schneider MD PCP - General youth career specialist 04/21/14 [facility] [address] [place] [address] documented as of this encounter
--- OUTSIDE RECORDS SUMMARY | 2022-10-26 11:44 | XMS_ITS | Encounter Summary ---
:1965 Author Organization [facility] Address [address] [place] [address] Care Team Providers Name Role Phone Ivory Schneider MD Primary Care Provider [phone] Reason for Referral Diagnostic Imaging Mammo - Closed Specialty Diagnoses / Procedures Referred By Contact Refer red To Contact Radiology. Diagnoses Breast screening Ivory [facility] Procedures DE Screening Ross Renteria MD [address] [employer] MACHINE OPERATOR CON SULT [address] [place] [phone] Fax: Referral ID Status Reason Start Date Expiration Date Visits Requ ested Visits Authorized [id number] Closed 02/13/2019 02/13/2020 1 1 Reason for Visit Diagnostic Imaging Mammo - Closed Specialty Diagnoses / Procedures Referred By Contact Refer red To Contact Radiology. Diagnoses Breast screening Ivory Schneider [facility] Procedures MA Screening Ross Renteria MD [address] [employer]FT[employer] MACHINE OPERATOR CON SULT [address] [place] [phone] Fax: Referral ID Status Reason Start Date Expiration Date Visits Requ ested Visits Authorized [id number] Closed 02/13/2019 02/13/2020 1 1 Encounter Details Date Type Department Care Team Description 02/13/2019 Hospital Encounter [facility] An[facility] Tiki Shuk[facility] screening [facility] Ivory Renteria MD [address] [facility] OPERATOR [address] CONSULT [place], [place] [address] [address] [place] [address] [address] [place] [address] Social History Tobacco Use [...] Associated Diagnosis Comme nts MA SCREENING Routine 02/13/2019 9:47 AM Breast screening Resul ts for this DIGITAL BILATERAL CDT procedure are in the results section. documented in this encounter Results MA Screening Digital Bilateral (02/13/2019 9:47 AM CDT) Anatomical Region Laterality Modality Breast Bilateral Mammography Specimen (Source) Anatomical Location Collection Method / Collectio n Time Received Time / Laterality Volume Impressions 02/13/2019 9:52 AM CDT IMPRESSION: BI-RADS CATEGORY: 1 - ??NEGATIVE. RECOMMENDED FOLLOW-UP: Annual Mammograph yAna CALIXTO MD Narrative 02/13/2019 9:52 AM CDT MA SCREENING DIGITAL BILATERAL 02/13/2019 9:47 AM HISTORY: ??Screening. ??No new breast co mplaints. COMPARISON: ??01/27/2018, 12/31/2013 TECHNIQUE: ??Digital mammography with CA D is performed. BREAST DENSITY: Heterogeneously dense. COMMENTS: No findings of suspicion for m alignancy. Procedure Note Sudeep Calixto MD - 02/13/2019For matting of this note might be different from the original. MA SCREENING DIGITAL BILATERAL 02/13/2019 9:47 AM HISTORY: Screening. No new breast compla ints. COMPARISON: 01/27/2018, 12/31/2013 TECHNIQUE: Digital mammography with CAD is performed. BREAST DENSITY: Heterogeneously dense. COMMENTS: No findings of suspicion for m alignancy. IMPRESSION: BI-RADS CATEGORY: 1 - NEGATI VE. RECOMMENDED FOLLOW-UP: Annual Mammograph y. SUDEEP CALIXTO MD Ivory Shukla MD IMG MAMMOGRAPHY ORDERABLES documented in this encounter Visit Diagnoses Diagnosis Breast screening Breast screening, unspecified documented in this encounter Care Teams Groutman Relationship Specialty Start Date End Date Ivory Schneider MD PCP - General political scientist 04/21/14 [facility] MACH[facility] OPERATOR CONSULT [address] [facility] [address] [place] [phone] documented as of this encounter
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
--- OUTSIDE RECORDS SUMMARY | 2022-10-26 11:44 | XMS_ITS | Encounter Summary ---
:1965 Author Organization [place] Address [address] [place] [id number] Care Team Providers Name Role Phone Ivory Schneider MD Primary Care Provider [phone] Encounter Details Date Type Department Care Team Description 09/24/2022 Travel Social History Tobacco Use Types Packs/Day [...] No / Unsu re 09/24/2022 6:37 PM RECEIVING CLERK someone who was confirmed or suspected to have Coronavirus/COVID-19? documented as of this encounter Plan of Treatment Not on filedocumented as of this encounter Visit Diagnoses Not on filedocumented in this encounter Care Teams Talent Buyer Relationship Specialty Start Date End Date Ivory Schneider MD PCP - General director of partner marketing 04/21/14 [facility] [address] [place] [address] documented as of this encounter
--- OUTSIDE RECORDS SUMMARY | 2022-10-26 11:44 | XMS_ITS | Encounter Summary ---
:1965 Author Organization [facility] Address [address] [place] [address] Care Team Providers Name Role Phone Ivory Schneider MD Primary Care Provider [phone] Reason for Visit Reason Comments Head Injury Encounter Details Date Type Department Care Team Description 03/28/2015 Emergency [facility] Kasie Ledesma Closed h ead injury, initial encounter; [facility] Emergency Dep ojy Aquino MD Nausea; [address] [facility] EMERGENCY PHYSICIANS Headache(784.0) [facility] [id number] [address] [address] [place], [place] [address] (Wo rk) Social History Tobacco Use Types Packs/Day Years Used Date Smoking Tobacco: Never Alcohol Use Standard Drinks/Week Comments Yes 0 (1 standard drink = 0.6 oz pure alcoho l) Occas. Sex Assigned at Date Recorded Not on file documented as of this encounter Last Filed Vital Signs Vital Sign Reading Time Taken Comments Blood Pressure 120/81 03/28/2015 9:50 PM CDT Pulse 61 03/28/2015 9:50 PM CDT Temperature 36.7 ??C (98 ??F) 03/28/2015 9:50 PM CDT Respiratory Rate 18 03/28/2015 9:50 PM CDT Oxygen Saturation 100% 03/28/2015 9:50 PM CDT Inhaled Oxygen Concentration - - Weight 68 kg (150 lb) 03/28/2015 9:50 PM CDT Height - - Body Mass Index 19.25 05/04/2014 7:09 AM CDT documented in this encounter Discharge Instructions Discharge InstructionsKasie Ledesma MD - 03/28/2015 10:10 PM CDT Discharge Instructions Head Injury You have been seen today for a head injury. You were checked for serious problems, like bleeding on the brain, but these problems cannot always be found right away. Due to this risk, you should not be alone for 24 hours after your injury. Follow up with your regular physician in 5 days. If you are taking a blood thinner, such as aspirin, Pradaxa?? (dabigatran), Coumadin?? (warfarin), or Plavix?? (clopidogrel), you are at especially high risk for immediate or delayed bleeding, and need to re-check with a physician in 24 hours, or sooner if any of the symptoms below happen. Return to the Emergency Department if: ??? You are confused, have amnesia, or you are not acting right. ??? Your headache gets worse or you start to have a really bad headache even with your recommended treatment plan. ??? You vomit more than once. ??? You have a convulsion or seizure. ??? You have trouble walking. ??? You have weakness or paralysis in an arm or a leg. ??? You have blood or fluid coming from your ears or nose. ??? You have new symptoms or anything that worries you. Sleeping: It is okay for you to sleep, but someone should wake you up as instructed by your doctor, and someone should check on you at your usual time to wake up. Activity: ??? Do not drive for at least 24 hours. ??? Do not drive if you have dizzy spells or trouble concentrating, or remembering things. ??? Do not return to any contact sports until cleared by your regular doctor. Follow-up: It is very important that you make an appointment with your clinic and go to the appointment. If you do not follow-up with your regular doctor, it may result in missing an important development which could result in permanent injury or disability and/or lasting pain. If there is any problemkeeping your appointment, call your doctor or return to the Emergency Department. MORE INFORMATION: Concussion: A concussion is a minor head injury that may cause temporary problems with the way your brain works. Some symptoms include: confusion, amnesia, nausea and vomiting, dizziness, fatigue, memory or concentration problems, irritability and sleep problems. CT Scans: Your evaluation today may have included a CT scan (CAT scan) to look for things like bleeding or a skull fracture (break). CT scans involve radiation and too many CT scans can cause serious health problems like cancer, especially in children. Because of this, your doctor may not have ordereda CT scan today if they think you are at low risk for a serious or life threatening problem. If you were given a prescription for [...] call or return to the Emergency Department. Remember that you can always come back [...] counseling Start 1 week prior to entering [facility] area and continue for 4 weeks after leaving area. CIPRO 500 MG OR Take one tablet twice 6 0 200 8 04/04/2015 TABSIndications: Other a day for up to three specified counseling days to treat traveler's diarrhea. NAPROXEN None Entered 0 04/04/2015 TRANSDERM-SCOP 1.5 MG TD 1 PATCH EVERY 3 DAYS; 10 3 10/16/2005 04/04/2015 [id number]: DENIED, PT NEEDS APPT Encounter for long-term (current) use of other medications VIVOTIF MONICA VACCINE Take one capsule by 4 0 03/1804/04/2015 CPE ORIndications: mouth qod (every Other specified other day). Take one counseling hour prior to meals. Keep refrigerated. documented as of this encounter ED Notes Kasie Ledesma MD - 03/28/2015 9:53 PM CDT History Chief Complaint: Head Injury HPI Bev Castillo is a 49 year old female who presents with a head injury. The patient reports that yesterday evening at around 19:30 she was outside swinging a tarp and turning abruptly to the left when she smacked the left side of her head on a tree. She noted immediate pain, but she did not lose consciousness. She is not on blood thinners. She continued to have a left-sided headache throughout theevening and woke up this morning with an ongoing headache. This has continued throughout the course of the day today along with some increased fatigue, prompting her to come in for evaluation this evening. The headache has been mild to moderate in severity and has been mostly constant aside from about 20 minutes of relief earlier this afternoon. This is not the worst headache in her life, and she denies neck pain or any other pain. This evening she also developed some nausea, but no vomiting. This is not associated with any dizziness, focal numbness or weakness, or any vision or hearing changes. She has been slightly more subdued today per the , but she has not been acting confused. She hasnot been ill recently otherwise. Allergies: NKDA Medications: Chloroquine Naproxen Past Medical History: The patient is currently on no regular medications. Past Surgical History: Colonoscopy - 05/04/14 Family / Social History: No past pertinent family history. Marital Status: [2] Social History: Negative for tobacco use. Positive for alcohol use - occasional. at bedside. Review of Systems Constitutional: Negative for fever. HENT: Negative for hearing loss. Eyes: Negative for visual disturbance. Respiratory: Negative for shortness of breath. Cardiovascular: Negative for chest pain. Gastrointestinal: Positive for nausea. Negative for vomiting and abdominal pain. Musculoskeletal: Negative for neck pain. Neurological: Positive for headaches. Negative for dizziness, facial asymmetry, speech difficulty, weakness and numbness. Negative for LOC. All other systems reviewed and are negative. Physical Exam First Vitals: BP: 120/81 mmHg Pulse: 61 Temp: 98 ??F (36.7 ??C) Resp: 18 SpO2: 100 % Weight: 68.04 kg (150 lb) Physical Exam General: Adult female sitting upright. Eyes: PERRL, Conjunctive within normal limits HENT: Scalp nontender to palpation. No palpable skull depression or deformity. Moist mucous membranes, oropharynx clear. Neck: Nontender to palpation. Normal active ROM. CV: Normal S1S2, no murmur, rub or gallop. Regular rate and rhythm Resp: Clear to auscultation bilaterally, no wheezes, rales or rhonchi. Normal respiratory effort. GI: Abdomen is soft, nontender and nondistended. No palpable masses. No rebound or guarding. MSK: No edema. Nontender. Normal active range of motion. Skin: Warm and dry. No rashes or lesions or ecchymoses on visible skin. Neuro: Alert and oriented. Responds appropriately to all questions and commands. No focal findings appreciated. Normal muscle tone. No facial asymmetry. Speech normal. [id number] intact. Ambulates with normal gait. Hearing grossly intact. GCS 15. Psych: Normal mood and affect. Pleasant. Emergency Department Course Emergency Department Course: Nursing notes and vitals reviewed. I performed an exam of the patient as documented above. GCS 15. Findings and plan explained to the Patient and spouse. Patient discharged home with instructions regarding supportive care, medications, and reasons to return. The importance of close follow-up was reviewed. The patient was prescribed Zofran. Impression & Plan Medical Decision Making: Bev Castillo is a 49 year old female who presents to the emergency room with concerns for head injury. By [place] head CT rules, she does not meet criteria for a head CT. This was discussed with her. Although the option for head CT was given, she chose based on these clinical guidelines to avoidthe head CT at this time. I recommended Tylenol as needed for pain and to follow up with her primarydoctor or concussion clinic within 5-7 with ongoing symptoms. She should return immediately to the emergency department should symptoms worsen. Please note that she is low-risk by age, no blood thinners, and lack of significant worrisome symptoms and mechanism of injury. She was discharged home in stable conditions with her with concussion guidelines. Diagnosis: 1. (959.01) Closed head injury, initial encounter 2. (787.02) Nausea 3. (784.0) Headache(784.0) I, Darrick Stephenson, am serving as a scribe on 03/28/2015 at 9:53 PM to personally document services performed by Dr. Ledesma based on my observations and the provider's statements to me. [facility] EMERGENCY DEPARTMENT Kasie Ledesma MD 03/30/15 0600 Verna Zapata RN - 03/28/2015 9:48 PM CDT Pt hit head on tree last night, denies LOC. Nausea this evening, denies vomiting. Pt more tired today also. ABC's intact, alert and oriented X3. documented in this encounter Plan of Treatment Not on filedocumented as of this encounter Visit Diagnoses Diagnosis Closed head injury, initial encounter Nausea Nausea alone Headache(784.0) Headache documented in this encounter Care Teams Dance Hall Host/Hostess Relationship Specialty Start Date End Date Ivory Schneider MD PCP - General medical insurance biller 04/21/14 [facility] SPECIALTIES OPERATOR CONSULT [address] [phone] documented as of this encounter
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
--- OUTSIDE RECORDS SUMMARY | 2022-10-26 11:44 | XMS_ITS | Encounter Summary ---
:1965 Author Organization [facility] Address [address] [place] [address] Care Team Providers Name Role Phone Ivory Schneider MD Primary Care Provider [phone] Encounter Details Date Type Department Care Team Description 06/17/2020 Travel Social History Tobacco Use Types Packs/Day [...] on filedocumented in this encounter Care Teams Technician Assistant Relationship Specialty Start Date End Date Ivory Schneider MD PCP - General press operator 04/21/14 [facility] LEARNING SUPPORT ASSISTANT CONSULT [address] [place] [phone] documented as of this encounter
--- OUTSIDE RECORDS SUMMARY | 2022-10-26 11:44 | XMS_ITS | Encounter Summary ---
:1965 Author Organization [facility] Address [address] [place] [address] Care Team Providers Name Role Phone Ivory Schneider MD Primary Care Provider [phone] Encounter Details Date Type Department Care Team Description 05/19/2020 Travel Social History Tobacco Use Types Packs/Day [...] on filedocumented in this encounter Care Teams Automatic Beam Warper Tender Relationship Specialty Start Date End Date Ivory Schneider MD PCP - General emergency spill response technician 04/21/14 [facility] PARENT PARTNER CONSULT [address] [place] [phone] documented as of this encounter
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
--- OUTSIDE RECORDS SUMMARY | 2022-10-26 11:44 | XMS_ITS | Encounter Summary ---
:1965 Author Organization [place] Address [address] [place] [address] Care Team Providers Name Role Phone Ivory Schneider MD Primary Care Provider [phone] Reason for Visit Reason Onset Date Comments Panel Management 04/13/2016 Pap Smear Encounter Details Date Type Department Care Team Description 04/13/2016 Telephone [facility] Anna Schneider anagement ([facility] [place] Ivory Renteria MD Smear) [address] [facility] ASSISTANT FACILITY MANAGER [place], [place] CONSULT [address] [address] [facility] [phone] [place] [address] Social History Tobacco Use Types Packs/Day Years Used Date Smoking Tobacco: Never Smokeless Tobacco: Never Alcohol Use Standard Drinks/Week Comments Yes 0 (1 standard drink = 0.6 oz pure alcoho l) Occas. Sex Assigned at Date Recorded Not on file documented as of this encounter Miscellaneous Notes Telephone Encounter - Brittney Breaux, [facility] - 04/13/2016 10:40 AM CDT Panel Management Review Patient has the following on her problem list: None Composite cancer screening Chart review shows that this patient is due/due soon for the following Pap Smear Summary: Patient is due/failing the following: PAP and PHYSICAL Action needed: Patient needs office visit for Physical with pap. Type of outreach: Phone, spoke to patient. she gets her paps done with her INSERTER and had her pap in Dec of this year.will update chart. Questions for provider review: None Brittney Breaux CMA Chart Closed . documented in this encounter Plan of Treatment Not on filedocumented as of this encounter Procedures Procedure Name Priority Date/Time Associated Diagnosis Comme nts PAP IMAGED THIN LAYER Routine 12/19/2015 Screening for cervi severiano Results for this SCREEN cancer procedure are i n the results section . documented in this encounter Results PAP imaged thin layer screen (12/19/2015) P athologist Signature PAP Date MISYS PAP MISYS Specimen (Source) Anatomical Location Collection Method Collection Time Received Time / Laterality / Volume Cytologic material 12/19/2015 (specimen) Narrative MISYS - 12/19/2015 Patient reports she had normal pap with INSERTER in Dec- Dr. Landers Ivory Shukla MD LAB - [facility]INICAL SPECI MEN Performing Organization Address City/State/ZIP Code Phon e Number MISYS documented in this encounter Visit Diagnoses Diagnosis Screening for cervical cancer - Primary Screening for malignant neoplasm of the cervix documented in this encounter Care Teams Mechanical Engineering Advisor Relationship Specialty Start Date End Date Ivory Schneider MD PCP - General sign erector and repairer 04/21/14 [facility] ASSISTANT FACILITY MANAGER CONSULT [address] [place] [phone] documented as of this encounter
--- OUTSIDE RECORDS SUMMARY | 2022-10-26 11:44 | XMS_ITS | Encounter Summary ---
:1965 Author Organization [place] Address [facility] [place] [address] Care Team Providers Name Role Phone Ivory Schneider MD Primary Care Provider [phone] Reason for Visit Reason Onset Date Comments Panel Management 12/29/2015 Pap Smear Encounter Details Date Type Department Care Team Description 12/29/2015 Telephone [facility] Kenyatta Amador Panel Management ([facility] [place] MD Xochilt Smear) [address] [place] [phone] [phone] Social History Tobacco Use Types Packs/Day Years Used Date Smoking Tobacco: Never Smokeless Tobacco: Never Alcohol Use Standard Drinks/Week Comments Yes 0 (1 standard drink = 0.6 oz pure alcoho l) Occas. Sex Assigned at Date Recorded Not on file documented as of this encounter Miscellaneous Notes Telephone Encounter - Trisha Whitman CMA - 01/06/2016 2:12 PM CST Will mail letter Trisha Whitman/STACEY [place] ING CONTROL CLERK Telephone Encounter - Brittney Breaux CMA - 01/05/2016 8:13 AM CST Tried calling patient, phone line fast busy. Unable to leave a voicemail. Will try calling later. Brittney Breaux CMA ING CONTROL CLERK Telephone Encounter - Brittney Breaux CMA - 12/29/2015 4:02 PM CST Panel Management Review Patient has the following on her problem list: None Composite cancer screening Chart review shows that this patient is due/due soon for the following Pap Smear Summary: Patient is due/failing the following: PAP Action needed: Patient needs office visit for Physical with pap. Type of outreach: Tried calling patient, phone line busy. Will try calling later. Questions for provider review: None Brittney Breaux CMA Chart routed to Care Team . ING CONTROL CLERK documented in this encounter Plan of Treatment Not on filedocumented as of this encounter Visit Diagnoses Not on filedocumented in this encounter Care Teams Mold Maker Plastic Molds Relationship Specialty Start Date End Date Ivory Schneider MD PCP - General president & ceo 04/21/14 [facility] SOLAR INSTALLER TECHNICIAN CONSULT [address] [phone] documented as of this encounter
--- OUTSIDE RECORDS SUMMARY | 2022-10-26 11:44 | XMS_ITS | Encounter Summary ---
:1965 Author Organization [place] Address [address] [place] [address] Care Team Providers Name Role Phone Ivory Schneider MD Primary Care Provider [phone] Reason for Visit (Routine) - Closed Specialty Diagnoses / Procedures Referred By Contact Refer red To Contact Radiology / Radiology. Procedures Breast Center [place] SCREENING DIGITAL [address], [address] [place] [address] Phone: Fax: Referral ID Status Reason Start Date Expiration Date Visits Requ ested Visits Authorized [id number] Closed 01/02/2017 01/02/2018 1 1 Encounter Details Date Type Department Care Team Description 01/02/2017 Hospital Encounter [facility] Roma Schneider for screening [facility] Breast [place] Ivory Renteria MD mammogram [address] [facility] [address] LEGAL CONTRACTS SPECIALIST CONSULT [place], [place] [address] [phone] [place] [address] [place] [address] Social History Tobacco Use Types [...] Associated Diagnosis Comme nts MA SCREENING Routine 01/02/2017 2:34 PM Visit for screening Re sults for this DIGITAL BILATERAL PHYSICAL CHEMISTRY TEACHER mammogram procedure are in the results section. documented in this encounter Results MA Screening Digital Bilateral (01/02/2017 2:34 PM PHYSICAL CHEMISTRY TEACHER) Anatomical Region Laterality Modality Breast Bilateral Mammography Specimen (Source) Anatomical Location Collection Method / Collectio n Time Received Time / Laterality Volume Impressions 01/02/2017 3:48 PM PHYSICAL CHEMISTRY TEACHER IMPRESSION: BI-RADS CATEGORY: 1 - ??Negative. RECOMMENDED FOLLOW-UP: Annual Mammograph simeon GROSSMAN MD Narrative 01/02/2017 3:48 PM PHYSICAL CHEMISTRY TEACHER SCREENING MAMMOGRAM, BILATERAL, DIGITAL w/CAD, 01/02/2017 3:47 PM BREAST DENSITY: Extremely dense. CLINICAL INFORMATION: ??routine., Encoun ter for screening mammogram for malignant neoplasm of breast, 01/06/2016, 01/10/2012 FINDINGS: Negative. Stable exam. Screeni ng exam in one year recommended. Procedure Note Harry Grossman MD - 01/02/2017Formatt ing of this note might be different from the original. SCREENING MAMMOGRAM, BILATERAL, DIGITAL w/CAD, 01/02/2017 3:47 PM BREAST DENSITY: Extremely dense. CLINICAL INFORMATION: routine., Encounte r for screening mammogram for malignant neoplasm of breast, 01/06/2016, 01/10/2012 FINDINGS: Negative. Stable exam. Screeni ng exam in one year recommended. IMPRESSION: BI-RADS CATEGORY: 1 - Negati ve. RECOMMENDED FOLLOW-UP: Annual Mammograph yAna GROSSMAN MD Ivory Shukla MD IMG MAMMOGRAPHY ORDERABLES documented in this encounter Visit Diagnoses Diagnosis Visit for screening mammogram Other screening mammogram documented in this encounter Care Teams Associate Director Of Nursing Relationship Specialty Start Date End Date Ivory Schneider MD PCP - General pad assembler 04/21/14 [facility] MACHINE ROOM ENGINEER CONSULT [address] [place] [phone] documented as of this encounter
--- OUTSIDE RECORDS SUMMARY | 2022-10-26 11:44 | XMS_ITS | Encounter Summary ---
:1965 Author Organization [place] Address [address] [place] [address] Care Team Providers Name Role Phone Ivory Schneider MD Primary Care Provider Encounter Details Date Type Department Care Team Description 11/25/2014 Hospital Encounter [facility] Roma Schneider for screening [facility] Breast [place] Ivory Renteria MD mammogram [address] [facility] [address] MARINE CHRONOMETER ASSEMBLER CONSULT [place], [place] [address] [phone] [place] [address] [place] [address] Social History Tobacco Use Types [...] EVERY 3 DAYS; 10 3 10/16/2005 04/04/2015 [id number]: DENIED, PT NEEDS APPT Encounter for long-term (current) use of other medications VIVOTIF MONICA VACCINE Take one capsule by 4 0 03/1804/04/2015 [facility] ORIndications: mouth qod (every Other specified other day). Take one counseling hour prior to meals. Keep refrigerated. documented as of this encounter Plan of Treatment Not on filedocumented as of this encounter Procedures Procedure Name Priority Date/Time Associated Diagnosis Comme nts MA SCREENING Routine 11/25/2014 10:47 AM Visit for screening R esults for this DIGITAL BILATERAL ENTRY LEVEL CIVIL ENGINEER mammogram procedure are in the results section. documented in this encounter Results MA Screening Digital Bilateral (11/25/2014 10:47 AM ENTRY LEVEL CIVIL ENGINEER) Anatomical Region Laterality Modality Breast Bilateral Mammography Specimen (Source) Anatomical Location Collection Method / Collectio n Time Received Time / Laterality Volume Impressions 11/25/2014 3:33 PM ENTRY LEVEL CIVIL ENGINEER IMPRESSION: BI-RADS CATEGORY: 1 - ??NEGATIVE. RECOMMENDED FOLLOW-UP: Annual Mammograph y Exam results letter mailed to patient. TIERRA DE LA CRUZ MD Narrative 11/25/2014 3:33 PM ENTRY LEVEL CIVIL ENGINEER SCREENING MAMMOGRAM, BILATERAL, DIGITAL w/CAD - 11/25/2014 10:47 AM. BREAST SYMPTOMS: No current breast compl aints. COMPARISON: ??12/31/13, 01/19/10. BREAST DENSITY: Extremely dense. COMMENTS: No findings of suspicion for m alignancy. ? Procedure Note Tierra De La Cruz MD - 5 SCREENING MAMMOGRAM, BILATERAL, DIGITAL w/CAD - 11/25/2014 10:47 AM. BREAST SYMPTOMS: No current breast compl aints. COMPARISON: 12/31/13, 01/19/10. BREAST DENSITY: Extremely dense. COMMENTS: No findings of suspicion for m alignancy. IMPRESSION IMPRESSION: BI-RADS CATEGORY: 1 - NEGATI VE. RECOMMENDED FOLLOW-UP: Annual Mammograph y Exam results letter mailed to patient. TIERRA DE LA CRUZ MD Ivory Shukla MD IMG MAMMOGRAPHY ORDERABLES documented in this encounter Visit Diagnoses Diagnosis Visit for screening mammogram Other screening mammogram documented in this encounter Care Teams Clipper Counters Relationship Specialty Start Date End Date Ivory Schneider MD PCP - General edm operator 04/21/14 [facility] GENERAL FOREMAN CONSULT [address] [phone] documented as of this encounter
--- OUTSIDE RECORDS SUMMARY | 2022-10-26 11:45 | XMS_ITS | Encounter Summary ---
:1965 Author Organization [place] Address [address] [place] [address] Care Team Providers Name Role Phone Kristian Schwartz MD Primary Care Provider Encounter Details Date Type Department Care Team Description 12/27/[address] [facility] MD CHRISTIAN [place] BOX COVERER HAND CONSULT [address] [place] [address] (Wo rk) Social History Tobacco Use Types Packs/Day Years Used Date Smoking Tobacco: Never Assessed Sex Assigned at Date Recorded Not on file documented as of this encounter Plan of Treatment Not on filedocumented as of this encounter Procedures Procedure Name Priority Date/Time Associated Diagnosis Comme nts C MAMMOGRAM, Routine 12/27/2004 9:04 AM Results f or this SCREENING ASSEMBLY AND PACKING SUPERVISOR procedure are i n the results section. documented in this encounter Results MAMMOGRAM, SCREENING (12/27/2004 9:04 AM ASSEMBLY AND PACKING SUPERVISOR) Anatomical Region Laterality Modality Other Specimen (Source) Anatomical Collection Method Collection Time Re ceived Time Location / / Volume Laterality 12/27/2004 9:04 AM ASSEMBLY AND PACKING SUPERVISOR Impressions 12/28/2004 3:40 PM ASSEMBLY AND PACKING SUPERVISOR SCREENING MAMMOGRAM, BILATERAL BREAST SYMPTOMS: None PREVIOUS MAMMOGRAPHY: Comparison with [facility] dated 10/17/99. ??There is no significant santizo ge. BREAST PARENCHYMA: ??Extremely dense, m ammography compromised. IMPRESSION: CATEGORY 1 Negative TECHNOLOGIST INITIALS: HORACIO Ivory Shukla MD SPECIAL IMAGING STUDIES documented in this encounter Visit Diagnoses Not on filedocumented in this encounter Care Teams Reforestation Worker Relationship Specialty Start Date End Date Kristian Schwartz MD PCP - General 05/29/02 01/08/12 [address] [place] [address] documented as of this encounter
--- OUTSIDE RECORDS SUMMARY | 2022-10-26 11:45 | XMS_ITS | Encounter Summary ---
:1965 Author Organization [place] Address [facility] [address] Care Team Providers Name Role Phone Kristian Schwartz MD Primary Care Provider Reason for Visit Reason Comments Imm/Inj hep a booster Encounter Details Date Type Department Care Team Description 08/27/2003 Allied Health/Nurse [facility] Imm /Inj (hep a booster) Visit Clinic [address] [place] [phone] Social History Tobacco Use Types Packs/Day Years Used Date Smoking Tobacco: Never Assessed Sex Assigned at Date Recorded Not on file documented as of this encounter Nursing Notes 08/27/2003 4:00 PM CDT >> MITCHEL SEBASTIAN 08/27/2003 4:21 pm Mitchel Sebastian RN documented in this encounter Plan of Treatment Not on filedocumented as of this encounter Visit Diagnoses Diagnosis Need for prophylactic vaccination and in oculation against viral hepatitis - Primary documented in this encounter Care Teams Cut Off Saw Operator Relationship Specialty Start Date End Date Kristian Schwartz MD PCP - General 05/29/02 01/08/12 [address] [address] [place] [phone] documented as of this encounter
--- OUTSIDE RECORDS SUMMARY | 2022-10-26 11:45 | XMS_ITS | Encounter Summary ---
:1965 Author Organization [place] Address [facility] [place] [address] Care Team Providers Name Role Phone Kristian Schwartz MD Primary Care Provider Reason for Visit Reason Comments Imm/Inj Hep B Encounter Details Date Type Department Care Team Description 05/19/2008 [facility] Imm/Inj (Hep B) Visit [place] [address] [place], [place] [phone] Social History Tobacco Use Types Packs/Day Years Used Date Smoking Tobacco: Never Alcohol Use Standard Drinks/Week Comments Not Asked 0 (1 standard drink = 0.6 oz pure alcoho l) Sex Assigned at Date Recorded Not on file documented as of this encounter Nursing Notes 05/19/2008 10:30 AM CDT >> ELISE MCCORMICK Wed May 19, 2008 11:08 AM Pt here for 2nd Hep B. Given without difficulties. Patient instructed to wait 15 minutes after injection per protocol. Elise Mccormick RN,C documented in this encounter Plan of Treatment Not on filedocumented as of this encounter Visit Diagnoses Diagnosis Need for prophylactic vaccination and in oculation against viral hepatitis documented in this encounter Care Teams Tubing Machine Operator Relationship Specialty Start Date End Date Kristian Schwartz MD PCP - General 05/29/02 01/08/12 [address] [place], [place] [id number] documented as of this encounter
--- OUTSIDE RECORDS SUMMARY | 2022-10-26 11:45 | XMS_ITS | Encounter Summary ---
:1965 Author Organization [place] Address [address] [place] [address] Care Team Providers Name Role Phone Kristian Schwartz MD Primary Care Provider Encounter Details Date Type Department Care Team Description 02/09/2009 Results Only [facility] Results J, MD GONZALES THRESHING OPERATOR CONSULT [address] [place] [address] (Wo rk) Social History [...] Procedure Name Priority Date/Time Associated Diagnosis Comme [facility] MAMMO SCREEN Routine 02/09/2009 9:06 AM Result s for this BILATATERAL, INCL CDT procedure are in CAD WHEN PERF the results section. documented in this encounter Results SCREENING MAMMOGRAPHY DIGITAL (BILAT) (02/09/2009 9:06 AM CDT) Anatomical Region Laterality Modality Other Specimen (Source) Anatomical Collection Method Collection Time Re ceived Time Location / / Volume Laterality 02/09/2009 9:06 AM CDT Impressions 02/09/2009 12:44 PM CDT SCREENING MAMMOGRAM, BILATERAL, DIGITAL, w/CAD - February 09, 2009 BREAST SYMPTOMS: None reported. ?? COMPARISON: December 2004, December 2006 , January 2008. PARENCHYMAL PATTERN: Extremely dense, li mits mammographic sensitivity. COMMENTS: No findings of suspicion for m alignancy. IMPRESSION: BI-RADS 1, NEGATIVE. Ivory Shukla MD SPECIAL IMAGING STUDIES documented in this encounter Visit Diagnoses Not on filedocumented in this encounter Care Teams Substation Wireman Relationship Specialty Start Date End Date Kristian Schwartz MD PCP - General 05/29/02 01/08/12 [address] [place] [address] documented as of this encounter
--- OUTSIDE RECORDS SUMMARY | 2022-10-26 11:45 | XMS_ITS | Encounter Summary ---
:1965 Author Organization [place] Address [address] [place] [address] Care Team Providers Name Role Phone Kristian Schwartz MD Primary Care Provider Encounter Details Date Type Department Care Team Description 01/07/2007 Results [facility] Sonny Morrow, [facility] Results [facility] [address] [place], [place] [address] (Wo rk) Social History Tobacco Use Types Packs/Day Years Used Date Smoking Tobacco: Never Alcohol Use Standard Drinks/Week Comments Not Asked 0 (1 standard drink = 0.6 oz pure alcoho l) Sex Assigned at Date Recorded Not on file documented as of this encounter Plan of Treatment Not on filedocumented as of this encounter Procedures Procedure Name Priority Date/Time Associated Comments Diagnosis C RT SONO BREAST Routine 01/07/2007 11:01 AM Resu lts for this PRESIDENT ERGONOMIC CONSULTING procedure are i n the results section. HC MAMMOGRAM, Routine 01/07/2007 10:46 AM Results for this DIAGNOSTIC BILATERAL PRESIDENT ERGONOMIC CONSULTING procedu re are in the results section. documented in this encounter Results RT SONO BREAST (01/07/2007 11:01 AM PRESIDENT ERGONOMIC CONSULTING) Anatomical Region Laterality Modality Other Specimen (Source) Anatomical Collection Method Collection Time Re ceived Time Location / / Volume Laterality 01/07/2007 11:01 AM PRESIDENT ERGONOMIC CONSULTING Impressions 02/04/2007 2:01 PM CDT EXAM: MAMM DIAG BILAT HISTORY/Comparison exams: Right breast area of denisty upper outer quadrant.12-27-2004,10-17-1999 Breast parenchyma: heterogeneously dens e Findings: No focal lesions identified. Exam: Ultrasound right upper-outer [address] where there is an area of clinical concern. Findings: No focal lesions seen. Category 1. Negative. ?? Sonny Morrow NP SPECIAL IMAGING STUDIES MAMMOGRAPHY; BILATERAL (01/07/2007 10:46 AM PRESIDENT ERGONOMIC CONSULTING) Anatomical Region Laterality Modality Other Specimen (Source) Anatomical Collection Method Collection Time Re ceived Time Location / / Volume Laterality 01/07/2007 10:46 AM PRESIDENT ERGONOMIC CONSULTING Impressions 01/07/2007 11:07 AM PRESIDENT ERGONOMIC CONSULTING EXAM: ??MAMM DIAG BILAT HISTORY/Comparison exams: ??Right breast area of denisty upper outer quadrant.12-27-2004,10-17-1999 Breast parenchyma: heterogeneously dense Findings: No focal lesions identified. Exam: ?Ultrasound right upper-outer breast where there is an area of clinical concern. Findings: ?No focal lesions seen. Category 1. Negative. Sonny Morrow NP SPECIAL IMAGING STUDIES documented in this encounter Visit Diagnoses Not on filedocumented in this encounter Care Teams Cobol Mainframe Developer Relationship Specialty Start Date End Date Kristian Schwartz MD PCP - General 05/29/02 01/08/12 [address] [place] [address] documented as of this encounter
--- OUTSIDE RECORDS SUMMARY | 2022-10-26 11:45 | XMS_ITS | Encounter Summary ---
:1965 Author Organization [place] Address [address] [place] [address]. [place] [address] Care Team Providers Name Role Phone Kristian Schwartz MD Primary Care Provider Reason for Visit Reason Comments Recheck Medication needing refills Encounter Details Date Type Department Care Team Description 10/16/2005 Office Visit [facility] Kristian Schwartz, [facility] ARE PLANT EQUIPMENT ENGINEER Clinic [place] MD USE MEDICATN (Primary [address] [address] [facility] S Dx) [place] [address] [phone] Social History Tobacco Use Types Packs/Day Years Used Date Smoking Tobacco: Never Alcohol Use Standard Drinks/Week Comments Not Asked 0 (1 standard drink = 0.6 oz pure alcoho l) Sex Assigned at Date Recorded Not on file documented as of this encounter Last Filed Vital Signs Vital Sign Reading Time Taken Comments Blood Pressure 118/69 10/16/2005 8:15 AM ENERGY ADVISOR Pulse 68 10/16/2005 8:15 AM ENERGY ADVISOR Temperature - - Respiratory Rate - - Oxygen Saturation - - Inhaled Oxygen Concentration - - Weight 71.2 kg (157 lb) 10/16/2005 8:15 AM ENERGY ADVISOR Height - - Body Mass Index - - documented in this encounter Progress Notes Kristian Schwartz - 10/16/2005 10:25 AM CST SUBJECTIVE: Bev Castillo is a 40 year old female swelling of the ankles DIZZYNESS. THIS SHE HAS HAD FOR SEVERALMONTHS WHEN SHE GOES SAILING. SHE IS GOING SAILING SOON. NEEDS REFILL OF MEDS. OBJECTIVE: BP 118/69 Pulse 68 Wt 157 lbs (71.2kg) Neuro: Cranial nerves and fundi are normal. SHAWNA. EOM's intact. No papilledema. Neck supple. No bruits. Normal deep tendon reflexes. Extremities: extremities, peripheral pulses and reflexes normal ASSESSMENT: 1. DIZZYNESS; DOING WELL WITH PATCH ONLY USES WHEN SHE GOES SAILING. PLAN: 1. see orders 2. RTC PRN. GY ADVISOR Chapis Rivera - 10/16/2005 8:15 AM ENERGY ADVISOR Addended by: CHAPIS RIVERA on: 10/16/2005 2:01:15 PM Modules accepted: Medications GY ADVISOR documented in this encounter Nursing Notes 10/16/2005 8:15 AM CST >> CAMILLE SUMMERS 10/16/2005 8:23 am Patient presents with: Recheck Medication - needing refills Initial BP 118/69 Pulse 68 Wt 157 lbs (71.2kg) There is no height information to calculate BMI.. BP completed using cuff size regular Camille Summers MA documented in this encounter Plan of Treatment Not on filedocumented as of this encounter Visit Diagnoses Diagnosis Encounter for long-term (current) use of other medications - Primary documented in this encounter Care Teams Job Estimator Relationship Specialty Start Date End Date Kristian Schwartz MD PCP - General 05/29/02 01/08/12 [address] [facility] [place] [address] documented as of this encounter
--- OUTSIDE RECORDS SUMMARY | 2022-10-26 11:45 | XMS_ITS | Encounter Summary ---
:1965 Author Organization [place] Address [address] [place] [address] Care Team Providers Name Role Phone Kristian Schwartz MD Primary Care Provider Reason for Visit Reason Comments Refill Request travel meds Encounter Details Date Type Department Care Team Description 02/01/2003 Refill [facility] Fausto Martin MD Refill Request (travel Clinic [facility] meds) [address] [facility], [address] [place] [address] [place] [address] [phone] Social History Tobacco Use Types Packs/Day Years Used Date Smoking Tobacco: Never Assessed Sex Assigned at Date Recorded Not on file documented as of this encounter Miscellaneous Notes Telephone Encounter - 02/01/2003 11:59 PM SENIOR UI WEB DEVELOPER >> DOMENICA DUBOSE [facility] Feb 01, 2003 11:37 AM >> CALL RECEIVED. Contact: Travel meds called into the pharmacy Domenica Dubose LPN documented in this encounter Plan of Treatment Not on filedocumented as of this encounter Visit Diagnoses Not on filedocumented in this encounter Care Teams Production Utility Worker Relationship Specialty Start Date End Date Kristian Schwartz MD PCP - General 05/29/02 01/08/12 [address] [place], [place] [id number] documented as of this encounter
--- OUTSIDE RECORDS SUMMARY | 2022-10-26 11:45 | XMS_ITS | Encounter Summary ---
:1965 Author Organization [place] Address [facility] [place] [address] Care Team Providers Name Role Phone Kristian Schwartz MD Primary Care Provider Reason for Visit Reason Comments Travel Clinic Consult--[facility] Encounter Details Date Type Department Care Team Description 03/18/2008 Office Visit [facility] COU NSELING OTHER SPECIFIED (Primary Dx); [place] [facility]AL HEPATITIS [address] [place] [address] Social History Tobacco Use Types Packs/Day Years Used Date Smoking Tobacco: Never Alcohol Use Standard Drinks/Week Comments Not Asked 0 (1 standard drink = 0.6 oz pure alcoho l) Sex Assigned at Date Recorded Not on file documented as of this encounter Progress Notes Trisha Garcia - 03/18/2008 10:46 AM CDT Itinerary: [facility]. Pt is going on a [employer] mission trip. She will be in various areas of [facility]. Departure Date: 07/03-07/12/08 IMMUNIZATION HISTORY Have you ever fainted from having your blood drawn or from an injection? Yes. Have you ever had a fever reaction to vaccination? No Have you ever had any bad reaction or side effect from any vaccination? No Have you ever had hepatitis A or B vaccine? Yes, completed hep A vaccine series. Do you live (or work closely) with anyone who has AIDS, an AIDS-like condition, any other immune disorder or who is on chemotherapy for cancer? No Do you have a family history of immunodeficiency? No Have you received any injection of immune globulin or any blood products during the past 12 months? No GENERAL MEDICAL HISTORY Do you have a medical condition that warrants maintenance medication or physician follow-up? No Do you have a medical condition that is stable now, but that may recur while traveling? No Have you had a fever in the past 48 hours? No Are you , or might you become on this trip? No Do you have AIDS, an AIDS-like condition, any other immune disorder, leukemia or cancer? No Have you had your thymus gland removed or a history of problems with your thymus, such as myastheniagravis, DiGeorge syndrome, or thymoma? No Do you have severe thrombocytopenia (low platelet count) or a coagulation disorder? No Have you ever had a convulsion, seizure, epilepsy, neurologic condition or brain infection? No Do you have any stomach conditions? No Do you have a G6PD deficiency? No Do you have severe renal impairment? No Do you have bowel conditions such as diarrhea or constipation? No Have you ever had hepatitis or yellow jaundice? No Do you have a history of psychiatric problems? No Do you have a problem with strange dreams and/or nightmares? No Do you have insomnia? No Do you have problems with vaginitis? No Do you have psoriasis? No Have you or a member of your household ever been diagnosed with eczema or atopic dermatitis (e.g. Itchy, red, scaly rash lasting >2 weeks that often comes and goes)? No Cardiac disease, with or without symptoms? No Do you have any eye conditions? No Are you prone to motion sickness? No Subjective: Patient here for immunizations prior to traveling to [facility]. Patient denies any symptoms of fever, cough or URI. Objective: Travel itinerary and immunization history completed. Assessment: International travel medical questionnaire completed. Ok to give vaccines. Plan: Cipro 500 mg, Vivotif Sissy and Chloroquine 500 mg are given for travelers diarrhea, oral typhoid vaccine and malaria prophylaxis per protocol. Hep B series started today. Patient education reviewed and given to Bev. Post Travel Period sheet discussed. Bev advised to stay after injection per protocol. Trisha Garcia R.N. documented in this encounter Plan of Treatment Not on filedocumented as of this encounter Visit Diagnoses Diagnosis Other specified counseling - Primary Need for prophylactic vaccination and in oculation against viral hepatitis documented in this encounter Care Teams Manager Strategy & Account Relationship Specialty Start Date End Date Kristian [place] MD PCP - General 05/29/02 01/08/12 [address] [place] [address] documented as of this encounter
--- OUTSIDE RECORDS SUMMARY | 2022-10-26 11:45 | XMS_ITS | Encounter Summary ---
:1965 Author Organization [place] Address [address] [place] [address] Care Team Providers Name Role Phone Unavailable Primary Care Provider Unavailable Reason for Visit (Routine) - Closed Specialty Diagnoses / Procedures Referred By Contact Refer red To Contact Radiology Diagnoses SCREENING BILATERAL-DIGITAL Procedure Notes: Routine. Breast Center Procedures RADIOLOGY [address], [address] [place], [place] [address] Phone: Fax: Referral ID Status Reason Start Date Expiration Date Visits Requ ested Visits Authorized [id number] Closed 01/09/2012 01/08/2013 1 1 Encounter Details Date Type Department Care Team Description 01/10/2012 Hospital Encounter [facility] Ivory Renteria MD [address] [facility] MAGNETIC RESONANCE IMAGING DIRECTOR [address] CONSULT [place], [place] [address] [facility] [address] [facility] [phone] [place] [address] (Wo rk) Social History Tobacco Use Types [...] EVERY 3 DAYS; 10 3 10/16/2005 04/04/2015 [id number]: DENIED, PT NEEDS APPT Encounter for long-term (current) use of other medications VIVOTIF MONICA VACCINE Take one capsule by 4 0 03/1804/04/2015 [facility] ORIndications: mouth qod (every Other specified other day). Take one counseling hour prior to meals. Keep refrigerated. documented as of this encounter Plan of Treatment Not on filedocumented as of this encounter Procedures Procedure Name Priority Date/Time Associated Diagnosis Comme nts MA SCREENING Routine 01/10/2012 12:17 PM Results for this DIGITAL BILATERAL HOUSING DIRECTOR procedure are in the results section. documented in this encounter Results Mammo Screening digital (bilat) (01/10/2012 12:17 PM HOUSING DIRECTOR) Anatomical Region Laterality Modality Breast Bilateral Other Specimen (Source) Anatomical Collection Method Collection Time Re ceived Time Location / / Volume Laterality 01/10/2012 12:17 PM HOUSING DIRECTOR Impressions 01/10/2012 12:36 PM HOUSING DIRECTOR SCREENING MAMMOGRAPHY, BILATERAL, DIGITA L, w/CAD ??January 10, 2012. HISTORY/COMPARISON: 01/19/2010, 02/04/2008 BREAST PARENCHYMAL PATTERN: ??Extremely dense. ??Mammography compromised. FINDINGS: ??No findings of suspicion for malignancy. ? IMPRESSION: ??BI-RADS 1, NEGATIVE. RECOMMENDATION: ??Annual screening mammo graphy. Ivory Shukla MD IMG MAMMOGRAPHY ORDERABLES documented in this encounter Visit Diagnoses Not on filedocumented in this encounter
--- OUTSIDE RECORDS SUMMARY | 2022-10-26 11:45 | XMS_ITS | Encounter Summary ---
:1965 Author Organization [place] Address [facility] [place] [address] Care Team Providers Name Role Phone Kristian [place] MD Primary Care Provider Encounter Details Date Type Department Care Team Description 11/13/2007 Therapy Visit [facility] [place] JOIN T PAIN-ANKLE Orthopedic PT (Primary Dx) [place] [address] [facility] [address] [facility] 100 [address] [place], [place] [address] Social History Tobacco Use Types Packs/Day Years Used Date Smoking Tobacco: Never Alcohol Use Standard Drinks/Week Comments Not Asked 0 (1 standard drink = 0.6 oz pure alcoho l) Sex Assigned at Date Recorded Not on file documented as of this encounter Progress Notes Cal [place] - 11/13/2007 10:17 AM CST Initial evaluation was completed. Please refer to the daily flowsheet for treatment today and total treatment time. Does this patient have Medicare or Medicaid as primary or secondary insurance? NO NUT GROWER documented in this encounter Plan of Treatment Not on filedocumented as of this encounter Procedures Procedure Name Priority Date/Time Associated Diagnosis Comme nts ZZC NEUROMUSCULAR Routine 11/13/2007 10:16 AM Joint Pain-Ankle RE-EDUCATION TUNG NUT GROWER ZC THERAPEUTIC EXERCISES Routine 11/13/2007 10:16 AM Joint Pa in-Ankle TUNG NUT GROWER documented in this encounter Visit Diagnoses Diagnosis Pain in joint, ankle and foot - Primary documented in this encounter Care Teams Complex Case Manager Relationship Specialty Start Date End Date Kristian [place] MD PCP - General 05/29/02 01/08/12 [address] [place] [address] documented as of this encounter
--- OUTSIDE RECORDS SUMMARY | 2022-10-26 11:45 | XMS_ITS | Encounter Summary ---
:1965 Author Organization [place] Address [address] [place] [address] Care Team Providers Name Role Phone Kristian Schwartz MD Primary Care Provider Reason for Visit Reason Onset Date Comments Refill Request 10/19/2004 Transderm Scop patch Encounter Details Date Type Department Care Team Description 10/19/2004 Refill [facility] Bobbi Vazquez Refill Request Clinic [place] MD Ismael (Transderm Scop patch) [address] [place] [id number] (Wo rk) Social History Tobacco Use Types Packs/Day Years Used Date Smoking Tobacco: Never Assessed Sex Assigned at Date Recorded Not on file documented as of this encounter Miscellaneous Notes Telephone Encounter - 10/19/2004 9:25 AM HOT PLATE [place]YWOOD PRESS FEEDER >> BOBBI VAZQUEZ Marzena Oct 19, 2004 9:45 AM not seen in over 18 months, needs to be seen >> SIENNA YEPEZ [facility] Oct 19, 2004 9:28 AM Refill request for Transderm patch This Rx is new to this pharmacy Last filled 05/12/03 Has not been seen in [facility] Sienna Yepez RN documented in this encounter Plan of Treatment Not on filedocumented as of this encounter Visit Diagnoses Not on filedocumented in this encounter Care Teams Stucco Plasterer Relationship Specialty Start Date End Date Kristian [place] MD PCP - General 05/29/02 01/08/[id number] [place] [address] documented as of this encounter
--- OUTSIDE RECORDS SUMMARY | 2022-10-26 11:45 | XMS_ITS | Encounter Summary ---
:1965 Author Organization [place] Address [address] [place] [address] Care Team Providers Name Role Phone Kristian [place] MD Primary Care Provider None, Bfp Primary Care Provider Unavailable Reason for Visit Reason Comments Other FELL ON SAT, INJURED R ANKLE Encounter Details Date Type Department Care Team Description [facility] Clinic [facility] RETIRED INJURED R ANKLE) [address] [facility], [address] [place] [address] Social History Tobacco Use Types Packs/Day Years Used Date Smoking Tobacco: Never Assessed Sex Assigned at Date Recorded Not on file documented as of this encounter Miscellaneous Notes Telephone Encounter - 12/12/1998 11:59 PM PATROL MAN >> LALA GARCIA [facility] Sep 06, 2003 11:45 AM >> CALL RECEIVED. Contact: documented in this encounter Plan of Treatment Not on filedocumented as of this encounter Visit Diagnoses Not on filedocumented in this encounter Care Teams Counting Machine Operator Relationship Specialty Start Date End Date Kristian [place] MD PCP - General 05/29/02 01/08/12 [address] [place] [address] None, Bfp PCP - General 12/01/99 05/28/02 documented as of this encounter
--- OUTSIDE RECORDS SUMMARY | 2022-10-26 11:45 | XMS_ITS | Encounter Summary ---
:1965 Author Organization [place] Address [facility] [place] [address] Care Team Providers Name Role Phone Kristian [place] MD Primary Care Provider Reason for Visit Reason Comments Refill Request Encounter Details Date Type Department Care Team Description 05/10/2003 Refill [facility] Cal Curiel, Refill Request [place] [id number] [place] [phone] [place], [place] [phone] (Wo rk) Social History Tobacco Use Types Packs/Day Years Used Date Smoking Tobacco: Never Assessed Sex Assigned at Date Recorded Not on file documented as of this encounter Miscellaneous Notes Telephone Encounter - 05/10/2003 11:59 PM CDT >> TIERRA DIAZ Mon May 10, 2003 2:55 PM >> CALL RECEIVED. Contact: pt request refill Transderm-sc #4 last refill date not given fax to Villarreal RN documented in this encounter Plan of Treatment Not on filedocumented as of this encounter Visit Diagnoses Not on filedocumented in this encounter Care Teams Hall Cleaner Relationship Specialty Start Date End Date Kristian Schwartz MD PCP - General 05/29/02 01/08/12 [address] [place], [place] [phone] documented as of this encounter
--- OUTSIDE RECORDS SUMMARY | 2022-10-26 11:45 | XMS_ITS | Encounter Summary ---
:1965 Author Organization [place] Address [facility] [place] [address] Care Team Providers Name Role Phone Verified, No Ref-Primary Primary Care Provider Unavailable Encounter Details Date Type Department Care Team Description 12/31/2013 Hospital Encounter [facility] Roma Schneider for screening [facility] Breast [place] Ivory Renteria MD mammogram [address] [facility] [address] SPORTS BOOK WRITER CONSULT [place], [place] [address] [address] [facility] [address] [place] [address] Social History Tobacco Use Types [...] EVERY 3 DAYS; 10 3 10/16/2005 04/04/2015 [id number]: DENIED, PT NEEDS APPT Encounter for long-term (current) use of other medications VIVOTIF MONICA VACCINE Take one capsule by 4 0 03/1804/04/2015 [facility] ORIndications: mouth qod (every Other specified other day). Take one counseling hour prior to meals. Keep refrigerated. documented as of this encounter Plan of Treatment Not on filedocumented as of this encounter Procedures Procedure Name Priority Date/Time Associated Diagnosis Comme nts MA SCREENING Routine 12/31/2013 2:41 PM Visit for screening Re sults for this DIGITAL BILATERAL FRUIT LOADER mammogram procedure are in the results section. documented in this encounter Results MA Screening Digital Bilateral (12/31/2013 2:41 PM FRUIT LOADER) Anatomical Region Laterality Modality Breast Bilateral Mammography Specimen (Source) Anatomical Location Collection Method / Collectio n Time Received Time / Laterality Volume Impressions 12/31/2013 3:01 PM FRUIT LOADER IMPRESSION: BI-RADS CATEGORY: 1 - ??NEGATIVE. RECOMMENDED FOLLOW-UP: Annual Mammograph y. Exam results letter mailed to patient. VIOLETA BATRES MD Narrative 12/31/2013 3:01 PM FRUIT LOADER SCREENING MAMMOGRAM, BILATERAL, DIGITAL w/CAD - 12/31/2013 2:41 PM BREAST SYMPTOMS: No current breast compl aints. COMPARISON: ??01/10/2012, 01/19/2010. BREAST DENSITY: Extremely dense. ?? COMMENTS: No findings of suspicion for m alignancy. ? Procedure Note Violeta Batres MD - 12/31/2013Format ting of this note might be different from the original. SCREENING MAMMOGRAM, BILATERAL, DIGITAL w/CAD - 12/31/2013 2:41 PM BREAST SYMPTOMS: No current breast compl aints. COMPARISON: 01/10/2012, 01/19/2010. BREAST DENSITY: Extremely dense. COMMENTS: No findings of suspicion for m alignancy. IMPRESSION IMPRESSION: BI-RADS CATEGORY: 1 - NEGATI VE. RECOMMENDED FOLLOW-UP: Annual Mammograph y. Exam results letter mailed to patient. VIOLETA BATRES MD Ivory Shukla MD IMG MAMMOGRAPHY ORDERABLES documented in this encounter Visit Diagnoses Diagnosis Visit for screening mammogram Other screening mammogram documented in this encounter Care Teams Frame Pulley Mortising Machine Operator Relationship Specialty Start Date End Date Verified, No Ref-Primary PCP - General 12/31/1304/20/14 documented as of this encounter
--- OUTSIDE RECORDS SUMMARY | 2022-10-26 11:45 | XMS_ITS | Encounter Summary ---
:1965 Author Organization [place] Address [facility] [place] [address] Care Team Providers Name Role Phone Kristian [place] MD Primary Care Provider Reason for Visit Reason Comments Drug Problem possible side effects of mal aria med Encounter Details Date Type Department Care Team Description 02/24/2003 Telephone [facility] Fausto Garcia MD Drug Problem (possible Clinic [facility] side effects of [address] [facility], [address] malaria med) [address] [place] [address] [place] [address] [phone] Social History Tobacco Use Types Packs/Day Years Used Date Smoking Tobacco: Never Assessed Sex Assigned at Date Recorded Not on file documented as of this encounter Miscellaneous Notes Telephone Encounter - 02/24/2003 11:59 PM CDT >> MITCHEL SEBASTIAN Marzena Feb 25, 2003 10:50 AM Pt's notified of Dr. Garcia's advice, will relay to pt and have her call if any questions. Sxs seem to be more constant, daily vs. worse after weekly dose at this time. Mitchel Sebastian, RN >> FAUSTO GARCIA Marzena Feb 25, 2003 10:23 AM Symptoms could be due to medication or traveler's diarrhea; I suggest she continue chloroquine for now; if the sxs flare up every time she takes the weekly chloroquine and then subside during the week off, this would be more convincing evidence that it is the chloroquine causing her sxs; if sxs are more constant/daily, I suggest she take cipro; negeoffrey to be seen by for persistent sxs >> MITCHEL SEBASTIAN SatFeb 24, 2003 2:14 PM >> CALL RECEIVED. Contact: , leave message if not home Pt was seen in travel clinic last month prior to trip to [facility]. Pt returned Saturday night from 2 week trip, has been on chloroquine 500mg weekly since 1 week prior to trip for malaria prophylaxi s. Pt has had some dizziness and mild loose stools for the last 6 days. No severe diarrhea symptom s, reports about 2 loose stools per day, appetite still good. Pt states she may have had some mosqu jesse bites during trip. Pt still has 4 more weeks of chloroquine to finish per protocol. Pt was adv ised that symptoms could be side effect of chloroquine, told I would consult with Dr. Garcia and severiano pritchett her back with advice. Mitchel Sebastian RN documented in this encounter Plan of Treatment Not on filedocumented as of this encounter Visit Diagnoses Not on filedocumented in this encounter Care Teams Wage And Hour Investigator Relationship Specialty Start Date End Date Kristian [place] MD PCP - General 05/29/02 01/08/12 [address] [place] [address] documented as of this encounter
--- OUTSIDE RECORDS SUMMARY | 2022-10-26 11:45 | XMS_ITS | Encounter Summary ---
:1965 Author Organization [place] Address [address] [place] [address] Care Team Providers Name Role Phone Kristian [place] MD Primary Care Provider Encounter Details Date Type Department Care Team Description 02/04/2008 Results Only [facility] Results J, MD GONZALES SUPERINTENDENT DISTRIBUTION CONSULT [address] [place] [address] (Wo rk) Social History [...] Name Priority Date/Time Associated Comments Diagnosis C DIGITIZATION, Routine 02/04/2008 11:09 Results for this MAMMOGRAPHIC GENIA AM CDT procedure a re in the results section. documented in this encounter Results DIGITIZATION, MAMMOGRAPHIC GENIA (02/04/2008 11:09 AM CDT) Anatomical Region Laterality Modality Other Specimen (Source) Anatomical Collection Method Collection Time Re ceived Time Location / / Volume Laterality 02/04/2008 11:09 AM CDT Impressions 02/04/2008 11:38 AM CDT SCREENING MAMMOGRAM, BILATERAL, DIGITAL w/ CAD BREAST SYMPTOMS/COMPARISON:Routine scree gordo, 01/07/07, 12/27/04 BREAST PARENCHYMAL PATTERN: Extremely de nse. FINDINGS: Negative. IMPRESSION: ACR BI-RAD Category 1. Negat eneida. Ivory Shukla MD GENERAL IMAGING documented in this encounter Visit Diagnoses Not on filedocumented in this encounter Care Teams Marketing Rotation Associate Relationship Specialty Start Date End Date Kristian [place] MD PCP - General 05/29/02 [address] [place] [address] documented as of this encounter
--- OUTSIDE RECORDS SUMMARY | 2022-10-26 11:45 | XMS_ITS | Encounter Summary ---
:1965 Author Organization [place] Address [address] [facility] [place] [address] Care Team Providers Name Role Phone Kristian [place] MD Primary Care Provider Encounter Details Date Type Department Care Team Description 11/26/2007 Therapy Visit [facility] [place] JOIN T PAIN-ANKLE Orthopedic PT ([place] Dx[place] [address] [facility] [address] [facility] 100 [address] [place] [address] [phone] Social History Tobacco Use Types Packs/Day Years Used Date Smoking Tobacco: Never Alcohol Use Standard Drinks/Week Comments Not Asked 0 (1 standard drink = 0.6 oz pure alcoho l) Sex Assigned at Date Recorded Not on file documented as of this encounter Progress Notes Christian Manrique - 12/22/2007 3:24 PM CST Please refer to flowsheet from 11/26/07 for discharge objective status. Pt did not return after secondvisit. ORATE EVENTS DIRECTOR [place] - 11/26/2007 10:05 AM CST Please refer to the daily flowsheet for treatment today and total treatment time. Does this patient have Medicare or Medicaid as primary or secondary insurance? NO ORATE EVENTS DIRECTOR documented in this encounter Plan of Treatment Not on filedocumented as of this encounter Procedures Procedure Name Priority Date/Time Associated Diagnosis Comme nts [facility] THERAPEUTIC Routine 11/26/2007 10:04 AM Joint Pain-Ankle ACTIVITIES CORPORATE EVENTS DIRECTOR [facility] THERAPEUTIC Routine 11/26/2007 10:04 AM Joint Pain-Ankle EXERCISES CORPORATE EVENTS DIRECTOR documented in this encounter Visit Diagnoses Diagnosis Pain in joint, ankle and foot - Primary documented in this encounter Care Teams Casino Worker Relationship Specialty Start Date End Date Kristian [place] MD PCP - General 05/29/02 01/08/12 [address] [place] [address] documented as of this encounter
--- OUTSIDE RECORDS SUMMARY | 2022-10-26 11:45 | XMS_ITS | Encounter Summary ---
:1965 Author Organization [facility] Address [address] [place] [address] Care Team Providers Name Role Phone Kristian Schwartz MD Primary Care Provider Reason for Visit Reason Onset Date Comments Refill Request 05/11/2005 transderm Encounter Details Date Type Department Care Team Description 05/11/2005 Refill [facility] None, Bfp Ref ill Request (transderm ) [place] [phone] Social History Tobacco Use Types Packs/Day Years Used Date Smoking Tobacco: Never Assessed Sex Assigned at Date Recorded Not on file documented as of this encounter Miscellaneous Notes Telephone Encounter - Brooke Llanes - 05/11/2005 2:53 PM CDT reviewed reasons for denial, will make ov if desires med Brooke Llanes RN Telephone Encounter - Brooke Llanes - 05/11/2005 11:55 AM CDT LAST SEEN:not seen in epic RTC INSTRUCTIONS: told needs appt LAST FILLED: 05/12/03 told last refill request 10/21 denied and needs appt,no appt scheduled, will deny refill again PSO Brooke Llanes RN documented in this encounter Plan of Treatment Not on filedocumented as of this encounter Visit Diagnoses Not on filedocumented in this encounter Care Teams Spooler Rubber Strand Relationship Specialty Start Date End Date Kristian Schwartz MD PCP - General 05/29/02 01/08/12 [address] [place] [address] documented as of this encounter
--- OUTSIDE RECORDS SUMMARY | 2022-10-26 11:45 | XMS_ITS | Encounter Summary ---
:1965 Author Organization [facility] Address [address] [place] [address]. [place] [address] Care Team Providers Name Role Phone Kristian Schwartz MD Primary Care Provider Reason for Visit Reason Comments Travel Clinic consult Encounter Details Date Type Department Care Team Description 01/29/2003 Allied Health/Nurse [facility] (consult) Visit Clinic [place] [address] [place] [address] Social History Tobacco Use Types Packs/Day Years Used Date Smoking Tobacco: Never Assessed Sex Assigned at Date Recorded Not on file documented as of this encounter Nursing Notes 01/29/2003 3:00 PM CST >> DOMENICA DUBOSE 01/29/2003 4:21 pm Itinerary: [facility] Departure Date: 02/11/03 for 2 weeks IMMUNIZATION HISTORY Have you ever fainted from having your blood drawn or from an injection? Yes Have you ever had a fever reaction to vaccination? No Have you ever had any bad reaction or side effect from any vaccination? No Have you ever had hepatitis A or B vaccine? No Do you live (or work closely) with [...] other immune disorder, leukemia or cancer? No Do you have severe thrombocytopenia (low platelet count) or a coagulation disorder? No Have you ever had a convulsion, seizure, epilepsy, neurologic condition or brain infection? No Do you have any stomach conditions? No Do you have a G6PD deficiency? No Do you have bowel conditions such as diarrhea or constipation? No Have you ever had hepatitis or yellow jaundice? No Do you have a history of psychiatric problems? No Do you have a problem with strange dreams and/or nightmares? No Do you have insomnia? No Do you have problems with vaginitis? No Do you have psoriasis? No Do you have any eye conditions? No Are you prone to motion sickness? Yes Subjective: Patient here for immunizations prior to traveling to [facility]. Bev denies any symptoms of fever, cough or URI. Objective: Travel itinerary and immunization history completed. Assessment: International travel medical questionnaire completed. Ok to give vaccines. Plan: Cipro 500mg and Chloroquine 250mg are given for travelers diarrhea and malaria prophylaxis per protocol. Patient education reviewed and given to Bev Post Travel Period sheet discussed. Bev advised to stay after injection per protocol. Bev did become faint after her injections. Protocol followed with Bev and also advised to lie down with further injections.Domenica Dubose LPN documented in this encounter Plan of Treatment Not on filedocumented as of this encounter Visit Diagnoses Diagnosis Other specified counseling Need for prophylactic vaccination and in oculation against viral hepatitis Need for prophylactic vaccination with t yphoid-paratyphoid alone (TAB) Need for prophylactic vaccination with t etanus-diphtheria (Td) documented in this encounter Care Teams Substitute School Nurse Relationship Specialty Start Date End Date Kristian Schwartz MD PCP - General 05/29/02 01/08/12 [address] [place] [address] documented as of this encounter
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
--- OUTSIDE RECORDS SUMMARY | 2022-10-26 11:45 | XMS_ITS | Encounter Summary ---
:1965 Author Organization [facility] Address [address] [place] [address] Care Team Providers Name Role Phone Kristian Schwartz MD Primary Care Provider Reason for Visit Reason Comments Imm/Inj 3RD HEP B SHOT Encounter Details Date Type Department Care Team Description 10/25/2008 Allied Health/Nurse [facility] Imm /Inj (3RD HEP B Visit Clinic [place] SHOT) [address] [place] [address] Social History Tobacco Use Types Packs/Day Years [...] hepatitis documented in this encounter Care Teams Pillowcase Maker Relationship Specialty Start Date End Date Kristian Schwartz MD PCP - General 05/29/02 01/08/12 [address] [place], [place] [id number] documented as of this encounter
--- OUTSIDE RECORDS SUMMARY | 2022-10-26 11:45 | XMS_ITS | Encounter Summary ---
:1965 Author Organization [facility] Address [address] [place] [address] Care Team Providers Name Role Phone Kristian Schwartz MD Primary Care Provider Encounter Details Date Type Department Care Team Description 01/19/2010 Results Only [facility] Results J, MD GONZALES GRAPPLER CONSULT [address] [place] [address] (Wo rk) Social History [...] Procedure Name Priority Date/Time Associated Diagnosis Comme [facility] MAMMO SCREEN Routine 01/19/2010 8:55 AM Result s for this BILATATERAL, INCL SEWING MACHINE OPERATOR ZIPPER procedure are in CAD WHEN PERF the results section. documented in this encounter Results SCREENING MAMMOGRAPHY DIGITAL (BILAT) (01/19/2010 8:55 AM SEWING MACHINE OPERATOR ZIPPER) Anatomical Region Laterality Modality Other Specimen (Source) Anatomical Collection Method Collection Time Re ceived Time Location / / Volume Laterality 01/19/2010 8:55 AM SEWING MACHINE OPERATOR ZIPPER Impressions 01/19/2010 2:21 PM SEWING MACHINE OPERATOR ZIPPER SCREENING MAMMOGRAM, BILATERAL, DIGITAL w/CAD - January 19, 2010 BREAST SYMPTOMS: No current breast compl aints. ?? COMPARISON: 02/09/2009, 12/27/2004. ?? PARENCHYMAL PATTERN: Extremely dense, ma mmographic sensitivity is limited. COMMENTS: No findings of suspicion for m alignancy. ?? IMPRESSION: BI-RADS 1, NEGATIVE. RECOMMENDATION: Annual screening mammogr aphy. Ivory Shukla MD SPECIAL IMAGING STUDIES documented in this encounter Visit Diagnoses Not on filedocumented in this encounter Care Teams Protective Signal Superintendent Relationship Specialty Start Date End Date Kristian Schwartz MD PCP - General 05/29/02 01/08/12 [address] [place] [address] documented as of this encounter
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
--- OUTSIDE RECORDS SUMMARY | 2022-10-26 11:46 | XMS_ITS ---
:1965 Author Care Team Providers Name Role Phone TraciphoebeMilena zepeda Primary Care Provider Unavailable Allergies Code Code System Name Reaction Severity Status Onset NKDA ? Medications Name Status Start Date Stop Date ? ? amoxicillin 500 mg capsule Completed ? 05/08 TAKE 1 CAPSULE BY MOUTH 3 TIMES DAILY WITH MEALS UNTIL GONE amoxicillin 500 mg tablet Active ? Not av ailable TAKE 1 TABLET BY MOUTH 3 TIMES A DAY UNTIL FINISHED azithromycin 250 mg tablet Completed ? 05/08 TAKE 2 TABLETS BY MOUTH TODAY, THEN TAKE 1 TABLET DAILY FOR 4 D AYS Casey Low Dose Aspirin 81 mg tablet,delayed release Active ? Not available Take 1 tablet every day by oral route. metronidazole 500 mg tablet Completed ? 04/19 TAKE 1 TABLET BY MOUTH 4 TIMES A DAY WITH AMOXICILLIN FOR 5 DAY S Transderm-Scop 1 mg over 3 days transdermal patch Active ? Not available Apply by transdermal route. Problems Name Status Onset Date Source ? Acute Ill-defined Cerebrovascular Disease Active ? History Procedures Date Name Performed by ? ? Tooth Extraction Information not kenna chavez Notes: *Surgery Date: age 17 Results Lab Results Date Name Specimen Result Interpretation Description Value Range Status Address ? 05/11/2022 Lipid Blood Above Cholesterol, 239 100-199 Final [facility]: Panel, venous High Total mg/dL mg/dL [address] Serum Normal [place] ? ? Blood ? Triglycerides 129 0-149 Final [facility]: venous mg/dL mg/dL [address] , [place] ? ? Blood ? HDL 100 >39 mg/dL Final [facility] : venous Cholesterol mg/dL [address] [place] ? ? Blood ? VLDL 22 mg/dL 5-40 Final [facility]: venous Cholesterol Jeanmarie mg/dL [address] , [place] ? ? Blood Above LDL Chol Calc 117 0-99 Final [facility]: venous High (Nih) mg/dL mg/dL [address] Normal [place] ? ? Blood ? Comment: inpatient coder ? Cancell [facility]: venous ed [address] [place] , [place] ? ? Blood ? T. chol/HDL 2.4 0.0-4.4 Final [facility]: venous Ratio ratio ratio [address] [place] , [place] 05/11/2022 Glucose, ? Glucose, 91 mg/dL 65-99 Final [facility]: Fasting Fasting mg/dL [address] [place] , [place] 05/11/2022 Pap, IG + ? Interpretation nilm ? F inal [facility] HPV Detection (16+18+45 (Lab): ) [address] [place] [address], [place] ? ? ? Category: nil ? Final [facility] (Lab): [address] [place] [address], [place] ? ? ? Adequacy: paer ? Final [facility] (Lab): [address] [place] [address], [place] ? ? ? Clinician comment ? Final Cente r For Provided ICD10: D isease Detection (Lab): [address] [place] [address], [place] ? ? ? Performed by: comment ? Final [facility] (Lab): [address] [place] [address], [place] ? ? ? Note: comment ? Final [facility] (Lab): [address] [place] [address], [place] ? ? ? Test comment ? Final Center Fo r Methodology: Dise ase Detection (Lab): [address] [place] [address], [place] ? ? ? HPV Aptima negative negative Final [facility] (Lab): [address] [place] [address], [place] 05/08/2021 Lipid ? Specimen Type ? ? Compl et North Panel, e [facility] - Lab: [address] [place] ? ? High Cholesterol 243 <200 Complet Nor th mg/dL mg/dL e [facility] - Lab: [address] [place] ? ? ? Triglycerides 78 mg/dL <150 Complet North Profile mg/dL e [facility] - Lab: [address] [place] ? ? High LDL Chol, Calc 121 <100 Complet North mg/dL mg/dL e [facility] - Lab: [address], [place] ? ? ? HDL 106 >40 mg/dL Complet [place] Cholesterol mg/dL e [facility] - Lab: [address], [place] ? ? ? chol/HDL Ratio 2.3 0.0-4.9 Complet [place] e [facility] - Lab: [address], [place] 05/08/2021 Glucose, ? Glucose, 97 mg/dL 50-100 Comple t [place] Fasting Fasting mg/dL e [facility] - Lab: [address], [place] ? Hemoglobi ? Fingerstick 13.7 12.0-15.0 ? [id number] n (Hb), Hemoglobin g/dL g/dL molina lorenzana [place]: 3 05 ck, Blood [place] [address] Past Encounters Encounter Date Diagnosis Provider 05/11/2022 Gynecologic Examination; Diabetes Zoya rivera MD: [address] [place] [address] Mellitus Screening; Screening for [place], [address], Malignant Neoplasm of Cervix; [place] [address], Ph. Cholesterol Screening 05/08/2021 Gynecologic Examination; Milena paris MD: [address] [facility] Hyperlipidemia Screening; Diabetes Jeni Cosme, [address], [place] [address], Ph. Social History Tobacco Smoking Status Never Smoker Vaccine List None recorded. Plan of Care Patient Instructions -follow up in 1 year for annual exam or sooner with problems Reminders Provider Appointments None recorded. ? ? Lab None recorded. ? ? Referral None recorded. ? ? Procedures None recorded. ? ? Surgeries None recorded. ? ? Imaging None recorded. ? ? Vitals 05/11/2022 11:00AM G_ANNUAL EXAM Height Weight BMI Blood Pressure 6 ft 2 in 153 lbs 19.6 kg/m2 108/64 mm[Hg] 05/08/2021 09:45AM G_ANNUAL EXAM Height Weight BMI Blood Pressure 6 ft 2 in 154.4 lbs 19.8 kg/m2 110/74 mm[Hg] 05/05/2020 Height Weight BMI Blood Pressure 6 ft 2.04 in 149.63 lbs 19.21 kg/m2 102/70 mm[Hg] 02/12/2019 Height Weight BMI Blood Pressure 6 ft 2.04 in 147.81 lbs 18.98 kg/m2 112/76 mm[Hg] 01/27/2018 Height Weight BMI Blood Pressure 6 ft 2.04 in 142 lbs 18.23 kg/m2 106/70 mm[Hg] 01/02/2017 Height Weight BMI Blood Pressure 6 ft 2.04 in 164.63 lbs 21.14 kg/m2 106/74 mm[Hg] 01/05/2016 Height Weight BMI Blood Pressure 6 ft 2.04 in 155.19 lbs 19.92 kg/m2 108/76 mm[Hg] 11/25/2014 Height Weight BMI Blood Pressure 6 ft 2.04 in 155 lbs 19.90 kg/m2 100/66 mm[Hg] 12/31/2013 Height Weight BMI Blood Pressure 6 ft 2.04 in 153 lbs 19.64 kg/m2 98/70 mm[Hg] 01/20/2013 Height Weight BMI Blood Pressure 6 ft 2.04 in 154 lbs 19.77 kg/m2 108/70 mm[Hg] 01/17/2012 Height Weight BMI Blood Pressure 6 ft 2.04 in 153 lbs 19.64 kg/m2 100/70 mm[Hg] 01/04/2011 Height Weight BMI Blood Pressure 6 ft 2.04 in 148.25 lbs 19.03 kg/m2 100/60 mm[Hg] 01/12/2010 Height Weight BMI Blood Pressure 6 ft 2.04 in 151 lbs 19.39 kg/m2 100/68 mm[Hg] 01/06/2009 Height Weight BMI Blood Pressure 6 ft 2.04 in 149 lbs 19.13 kg/m2 102/60 mm[Hg]
== END 2022-09-24 16:47 | disposition home or self-care (01) ==
PROVIDERS: PCP Physician Assistant Medical; Visit Provider Family Medicine
DX: S29.9XXA Unspecified injury of thorax, initial encounter (principal); V49.40XA Driver injured in collision with unspecified motor vehicles in traffic accident, initial encounter; Y92.410 Unspecified street and highway as the place of occurrence of the external cause
CPT/HCPCS: A0427; A0998

== ENCOUNTER 2023-03-01 09:45 | Outpatient (RCR) | payer BC, OTHER, SELFPAY | END 2023-04-25 15:26 | disposition home or self-care (01) | PROVIDERS: PCP Physician Assistant Medical; Visit Provider Physician Assistant Medical | DX: M54.2 Cervicalgia (principal); G44.89 Other headache syndrome; S09.90XA Unspecified injury of head, initial encounter; S24.109S Unspecified injury at unspecified level of thoracic spinal cord, sequela; M51.34 Other intervertebral disc degeneration, thoracic region; R29.3 Abnormal posture; G44.209 Tension-type headache, unspecified, not intractable; H81.90 Unspecified disorder of vestibular function, unspecified ear; M54.9 Dorsalgia, unspecified; Z51.89 Encounter for other specified aftercare | CPT/HCPCS: 97012; 97032; 97110; 97112; 97140; 97162; 97535 ==

== ENCOUNTER 2023-07-25 10:15 | Outpatient (RCR) | payer BC, SELFPAY | END 2023-11-22 23:59 | disposition home or self-care (01) | PROVIDERS: PCP Physician Assistant Medical; Visit Provider Family Medicine | DX: S24.109S Unspecified injury at unspecified level of thoracic spinal cord, sequela (principal); M51.34 Other intervertebral disc degeneration, thoracic region; M54.89 Other dorsalgia; R29.3 Abnormal posture; M54.2 Cervicalgia; Z51.89 Encounter for other specified aftercare | CPT/HCPCS: 97032; 97110; 97112; 97140; 97161; 97535 ==